=== PATIENT | female | born 1970 | race Two or more races ===

== ENCOUNTER 2016-10-12 16:25 | Inpatient (IN) | payer OTHER ==
[2016-10-12 16:30] VITALS: BMI 23.9
[2016-10-12 17:17] LABS: BASOPHIL 0.6 % (0-2.0); MCH 26.4 pg (25.7-33.7); MCHC 33.3 g/dl (32.0-36.0); MEAN CELL VOLUME 79.5 fl (80-96); MEAN PLT VOLUME 7.9 fl (7.5-11.1); NEUTROPHILS 68.3 % (42.8-82.8); PLATELET COUNT 291 K/MM3 (134-434); RDW 15.2 % (11.6-15.6); WHITE BLOOD COUNT 8.4 K/mm3 (4.0-10.0)
[2016-10-12 17:21] LABS: URINE APPEARANCE CLEAR; URINE BILIRUBIN NEGATIVE (NEGATIVE); URINE BLOOD 1+ (NEGATIVE); URINE COLOR YELLOW; URINE GLUCOSE (UA) NEGATIVE (NEGATIVE); URINE KETONE NEGATIVE (NEGATIVE); URINE LEUK ESTERASE NEGATIVE (NEGATIVE); URINE NITRITE NEGATIVE (NEGATIVE); URINE PROTEIN NEGATIVE (NEGATIVE); URINE UROBILINOGEN NEGATIVE E.U./dl (0.2-1.0)
[2016-10-12 17:22] LABS: URINE BACTERIA RARE /hpf (NONE SEEN); URINE MUCUS RARE; URINE RBC 2 /hpf (0-3); URINE WBC <1 /hpf (3-5)
--- NOTE | 2016-10-12 17:37 | PDOC ---
History of Present Illness - General History Source: Patient Exam Limitations: No Limitations - History of Present Illness Initial Comments: 10/12/16 17:48 The patient is a 45 year old female with history of gallstones and distant history of H. pylori who presents to the ED complaining of 1 month of intermittent epigastric discomfort, pressure like in nature, radiating to the back, not associated with eating, ranked 5/10 in intensity. She states she was seen at a clinic for her complaint approximately 3 weeks ago and was prescribed Gas-X with only mild relief. The patient denies any fever or chills. She denies any nausea, vomiting, or diarrhea. Last bowel movement was this morning. <Lorenza Watson - Last Filed: 10/12/16 18:00> <Willy Rodriguez - Last Filed: 10/12/16 22:08> <Frieda Montes De Oca - Last Filed: 10/12/16 23:02> - General Chief Complaint: Pain Stated Complaint: ABD PAIN Time Seen by Provider: 10/12/16 17:36 Past History <Lorenza Watson - Last Filed: 10/12/16 18:00> - Past Medical History Kidney Stones: Yes Other medical history: GALL BLADDER STONES. - Psycho/Social/Smoking Cessation Hx Anxiety: No Suicidal Ideation: No Smoking History: Never smoked Hx Alcohol Use: No Drug/Substance Use Hx: No Substance Use Type: None <Willy Rodriguez - Last Filed: 10/12/16 22:08> <Frieda Montes De Oca - Last Filed: 10/12/16 23:02> - Past Medical History Allergies/Adverse Reactions: Allergies Allergy/AdvReac Type Severity Reaction Status Date / Time amoxicillin Allergy Severe anaphylaxis Verified 10/12/16 16:26 azithromycin Allergy Severe anaphylaxis Verified 10/12/16 16:26 [From Zithromax Z-Triston] Home Medications: Ambulatory Orders NK [No Known Home Medication] 10/12/16 Review of Systems - Review of Systems Able to Perform ROS?: Yes Comments:: 10/12/16 17:57 CONSTITUTIONAL: No fever, no chills, no fatigue EYES: No visual changes ENT: No ear pain, no sore throat CARDIOVASCULAR: No chest pain, no palpitations RESPIRATORY: No cough, no SOB GI: +Epigastric discomfort. No no nausea, no vomiting, no constipation, no diarrhea GENITOURINARY: No dysuria, no frequency, no hematuria MUSCULOSKELETAL: No backpain, no joint pain, no myalgias SKIN: No rash NEURO: No headache <Lorenza Watson - Last Filed: 10/12/16 18:00> *Physical Exam - Vital Signs Last Vital Signs Temp Pulse Resp BP Pulse Ox 97.6 F 108 H 20 141/67 98 10/12/16 16:25 10/12/16 16:25 10/12/16 16:25 10/12/16 16:25 10/12/16 16:25 - Physical Exam Comments: 10/12/16 17:57 CONSTITUTIONAL: Well-appearing; well-nourished; in no apparent distress HEAD: Normocephalic; atraumatic EYES: PERRL; EOM intact; no scleral icterus ENMT: External appears normal; normal oropharynx; moist mucous membranes NECK: Supple; non-tender; no cervical lymphadenopathy CARD: Normal S1, S2; no murmurs, rubs, or gallops RESP: Normal chest excursion with respiration; breath sounds clear and equal bilaterally; no wheezes, rhonchi, or rales ABD: +Mild epigastric tenderness with no guarding or rebound; Soft; non-tender; no palpable organomegaly, no palpable hernias EXT: Normal ROM in all four extremities; non-tender to palpation; distal pulses intact SKIN: Warm, dry, no rash NEURO: No focal neurological deficiencies. <Lorenza Watson - Last Filed: 10/12/16 18:00> - Vital Signs Last Vital Signs Temp Pulse Resp BP Pulse Ox 97.6 F 108 H 20 141/67 98 10/12/16 16:25 10/12/16 16:25 10/12/16 16:25 10/12/16 16:25 10/12/16 16:25 <Willy Rodriguez - Last Filed: 10/12/16 22:08> - Vital Signs Last Vital Signs Temp Pulse Resp BP Pulse Ox 98.4 F 98 H 20 144/80 99 10/12/16 20:16 10/12/16 20:16 10/12/16 20:16 10/12/16 20:16 10/12/16 20:16 <Frieda Montes De Oca - Last Filed: 10/12/16 23:02> Heart Score/ECG Review - ECG Intrepretation Comment:: 10/12/16 23:00 ECG was read by Dr. Rodriguez at 22:55 Impression: Normal Sinus Rhythm Vent. Rate: 86 bpm GA Interval: 134 ms QTc: 445 ms <Frieda Montes De Oca - Last Filed: 10/12/16 23:02> ED Treatment Course - LABORATORY CBC & Chemistry Diagram: 10/12/16 17:10 10/12/16 17:10 - ADDITIONAL ORDERS Additional order review: Laboratory Results 10/12/16 17:10 Urine Color Yellow Urine Appearance Clear Urine pH 7.0 Urine Protein Negative Urine Glucose (UA) Negative Urine Ketones Negative Urine Blood 1+ H Urine Nitrite Negative Urine Bilirubin Negative Urine Urobilinogen Negative Ur Leukocyte Esterase Negative Urine RBC 2 Urine WBC <1 Ur Epithelial Cells Rare Urine Bacteria Rare Urine Mucus Rare Urine HCG, Qual Negative 10/12/16 17:10 RBC 4.63 MCV 79.5 L MCHC 33.3 RDW 15.2 MPV 7.9 Neutrophils % 68.3 Lymphocytes % 20.3 Monocytes % 7.8 Eosinophils % 3.0 Basophils % 0.6 <Lorenza Watson - Last Filed: 10/12/16 18:00> - LABORATORY CBC & Chemistry Diagram: 10/12/16 17:10 10/12/16 17:10 - ADDITIONAL ORDERS Additional order review: Laboratory Results 10/12/16 17:10 Urine Color Yellow Urine Appearance Clear Urine pH 7.0 Urine Protein Negative Urine Glucose (UA) Negative Urine Ketones Negative Urine Blood 1+ H Urine Nitrite Negative Urine Bilirubin Negative Urine Urobilinogen Negative Ur Leukocyte Esterase Negative Urine RBC 2 Urine WBC <1 Ur Epithelial Cells Rare Urine Bacteria Rare Urine Mucus Rare Urine HCG, Qual Negative 10/12/16 17:10 RBC 4.63 MCV 79.5 L MCHC 33.3 RDW 15.2 MPV 7.9 Neutrophils % 68.3 Lymphocytes % 20.3 Monocytes % 7.8 Eosinophils % 3.0 Basophils % 0.6 <Willy Rodriguez - Last Filed: 10/12/16 22:08> - LABORATORY CBC & Chemistry Diagram: 10/12/16 17:10 10/12/16 17:10 - ADDITIONAL ORDERS Additional order review: Laboratory Results 10/12/16 10/12/16 17:10 17:10 Sodium 141 Potassium 3.8 Chloride 104 Carbon Dioxide 24 Anion Gap 13 BUN 6 L Creatinine 0.8 Creat Clearance w eGFR > 60 Random Glucose 116 H Calcium 9.3 Total Bilirubin 1.0 AST 770 H ALT 656 H Alkaline Phosphatase 168 H Total Protein 8.0 Albumin 4.1 Lipase 282 Urine Color Yellow Urine Appearance Clear Urine pH 7.0 Ur Specific [place] 1.015 Urine Protein Negative Urine Glucose (UA) Negative Urine Ketones Negative Urine Blood 1+ H Urine Nitrite Negative Urine Bilirubin Negative Urine Urobilinogen Negative Ur Leukocyte Esterase Negative Urine RBC 2 Urine WBC <1 Ur Epithelial Cells Rare Urine Bacteria Rare Urine Mucus Rare Urine HCG, Qual Negative 10/12/16 17:10 RBC 4.63 MCV 79.5 L MCHC 33.3 RDW 15.2 MPV 7.9 Neutrophils % 68.3 Lymphocytes % 20.3 Monocytes % 7.8 Eosinophils % 3.0 Basophils % 0.6 - Medications Given in the ED: ED Medications Discontinued Medications Generic Name Dose Route Start Last Admin Trade Name Gerryq PRN Reason Stop Dose Admin Al Hydroxide/Mg Hydroxide 30 ml 10/12/16 17:48 10/12/16 17:58 Mylanta Oral Suspension - PO 10/12/16 17:49 30 ml ONCE ONE Administration Ranitidine HCl 150 mg 10/12/16 17:48 10/12/16 17:58 Zantac - PO 10/12/16 17:49 150 mg ONCE ONE Administration <Frieda Montes De Oca - Last Filed: 10/12/16 23:02> Medical Decision Making - Medical Decision Making 10/12/16 22:11 Patient is a well-appearing 45-year-old female with history of cholelithiasis, treated H. pylori who presents with worsening epigastric and right upper quadrant pain for a period of 3-4 weeks. In the ER, patient is awake and alert, afebrile, hemodynamically stable. Physical exam reveals persistent epigastric tenderness to deep palpation without a positive Blanc's. There is no CVA tenderness bilaterally. CBC is within normal limit. CMP reveals significant elevation of AST and ALTs in mild elevation of alkaline phosphatase with a normal bilirubin. Right upper quadrant ultrasound reveals sludge and small gallstones within the gallbladder wall. there is no gallbladder wall thickening and there is no evidence of pericholecystic fluid. Evidence of fatty infiltration is noted. I discussed the case with Dr. Suzanne Hooper of GI. He recommends placing patient in observation for serial LFT evaluation and a CT with IV contrast to evaluate for vascular pathology. Hepatitis panel is also pending. we'll place and observation. <Willy Rodriguez - Last Filed: 10/12/16 22:08> - Medical Decision Making 10/12/16 21:02 Dr. Quintanilla was paged at 21:00 requesting a call back for doctor to doctor consult via phone answering service. I have been informed Dr. Rivas will be returning the call. Dr. Rivas was paged a second time at 21:17 requesting a call back for doctor to doctor consult 10/12/16 22:01 I have discussed the patient's case with the hospitalist, Dr. Bryant, who accepts the patient's admission under observation. <Frieda Montes De Oca - Last Filed: 10/12/16 23:02> *DC/Admit/Observation/Transfer - Attestations Scribe Attestion: 10/12/16 17:58 Documentation prepared by Lorenza Watson, acting as medical delivery driver for Willy Rodriguez MD. <Lorenza Watson - Last Filed: 10/12/16 18:00> - Discharge Dispostion Admit: Yes - Attestations Physician Attestion: 10/12/16 22:10 The documentation was prepared by the scribe under my direct supervision. I have reviewed the documentation which correctly represents the findings, medical decision-making and critical action taken by me. <Willy Rodriguez - Last Filed: 10/12/16 22:08> <Frieda Montes De Oca - Last Filed: 10/12/16 23:02> Diagnosis at time of Disposition: Epigastric abdominal pain, Elevated LFTs
[2016-10-12 17:39] LABS: ALBUMIN 4.1 g/dl (3.4-5.0); ANION GAP 13 (8-16); CALCIUM 9.3 mg/dL (8.5-10.1); CO2 24 mmol/L (21-32); COCKROFT - GAULT 84.1755; CREATININE 0.8 mg/dL (0.55-1.02); GLUCOSE,RANDOM 116 mg/dL (74-106)
[2016-10-12 17:42] LABS: ALK PHOS 168 U/L (45-117)
[2016-10-12 17:48] LABS: SGOT/AST 770 U/L (15-37); SGPT/ALT 656 U/L (12-78)
[2016-10-12] MEDS ORDERED: RANITIDINE HCL 150 MG TABLET (FP) PO ONE (17:48)
[2016-10-12] MEDS ORDERED: MAG HYDROX/AL HYDROX/SIMETH 30 ML UNIT-DOSE CUP PO ONE (17:48)
[2016-10-12] MEDS ORDERED: RANITIDINE HCL 150 MG TABLET (FP) ONE (17:54)
[2016-10-12] MEDS ORDERED: MAG HYDROX/AL HYDROX/SIMETH 30 ML UNIT-DOSE CUP ONE (17:55)
--- NOTE | 2016-10-12 22:04 | PN ---
<MannyJustin - Last Filed: 10/12/16 22:03> Teaching Attending Note Name of Resident: Rose Sanchez ATTENDING PHYSICIAN STATEMENT I saw and evaluated the patient. I reviewed the resident's note and discussed the case with the resident. I agree with the resident's findings and plan as documented. SUBJECTIVE: OBJECTIVE: ASSESSMENT AND PLAN: <John Lundyhel - Last Filed: 10/13/16 00:03> Teaching Attending Note ATTENDING PHYSICIAN STATEMENT I saw and evaluated the patient. I reviewed the resident's note and discussed the case with the resident. I agree with the resident's findings and plan as documented. Imaging date and chart reviewed. SUBJECTIVE: The patient is a 45 yo F with a PMHx of gallstones, kidney stones, remote hx of H.pylori who presents with complaints of gassy feeling in her epigastric area for the past one month. Patient states it begins 1 week before her menstruation however remained constant recently. Patient describes the pain is intermittent, with some relief to Gasax but not to omeprazole. Patient denies any nausea, vomiting or radiation. Patient reports her pain occurred spontaneously. Denies any trauma to the area. Denies any dietary changes. Remote history of H. pylori which was treated but not confirmed it was treated successfully. Patient has been taking Tylenol for relief for the past month however is unsure of exact dosages. Denied taking herbal supplements. Denied any known hx of liver disease. As per chart, ED physician discussed case with Dr. Olivares who recommended CT of abdomen with contrast and admission to hospital. OBJECTIVE: Last Vital Signs Temp Pulse Resp BP Pulse Ox 98.4 F 98 H 20 144/80 99 10/12/16 20:16 10/12/16 20:16 10/12/16 20:16 10/12/16 20:16 10/12/16 20:16 GENERAL: Awake, alert, and fully oriented, in no acute distress. HEENT: Atraumatic. Moist mucosa. Normocephalic. No sinus tenderness. No LAD. NECK: No JVD. No thyroid masses. Supple. LUNGS: Clear to auscultation bilaterally. No wheezing, rhonchi or rales. HEART: Regular rate and rhythm, normal S1 and S2, no murmurs, rubs or gallops, peripheral pulses normal and equal bilaterally. ABDOMEN: +Mild RUQ tenderness and epigastric tenderness to palpation. Normoactive bowel sounds. No guarding, no rebound. No Masses. Negative Blanc sign. MUSCULOSKELETAL: No joint tenderness or erythema. No muscle tenderness. Normal muscle bulk and tone. EXTREMITIES: Normal inspection, No edema. No clubbing or cyanosis. Moves all extremities. NEUROLOGICAL: Normal speech, no focal sensorimotor deficits. SKIN: Warm, dry, normal turgor, no rashes or lesions noted. Laboratory Results - last 24 hr 10/12/16 10/12/16 10/12/16 17:10 17:10 17:10 WBC 8.4 RBC 4.63 Hgb 12.2 Hct 36.8 MCV 79.5 L MCHC 33.3 RDW 15.2 Plt Count 291 MPV 7.9 Neutrophils % 68.3 Lymphocytes % 20.3 Monocytes % 7.8 Eosinophils % 3.0 Basophils % 0.6 Sodium 141 Potassium 3.8 Chloride 104 Carbon Dioxide 24 Anion Gap 13 BUN 6 L Creatinine 0.8 Creat Clearance w eGFR > 60 Random Glucose 116 H Calcium 9.3 Total Bilirubin 1.0 AST 770 H ALT 656 H Alkaline Phosphatase 168 H Total Protein 8.0 Albumin 4.1 Lipase 282 Urine Color Yellow Urine Appearance Clear Urine pH 7.0 Ur Specific [place] 1.015 Urine Protein Negative Urine Glucose (UA) Negative Urine Ketones Negative Urine Blood 1+ H Urine Nitrite Negative Urine Bilirubin Negative Urine Urobilinogen Negative Ur Leukocyte Esterase Negative Urine RBC 2 Urine WBC <1 Ur Epithelial Cells Rare Urine Bacteria Rare Urine Mucus Rare Urine HCG, Qual Negative Imaging: Abdomen US Impression: There are small shadowing stones and sludge in the gallbladder. The gallbladder wall is normal in thickness measuring 2 mm. There is no pericholecystic fluid. Presence or absence of a sonographic Blanc's sign was not reported The common bile duct is within normal limits measuring 5.5 There are heterogeneous areas of increased echotexture in the liver possibly secondary to steatosis. The liver is normal in size and contour. No intrahepatic biliary dilatation. No hepatic masses. Patent portal vein The right kidney, pancreas and visualized portions of the abdominal aorta and IVC are unremarkable. ASSESSMENT AND PLAN: 1.Transaminitis which is more hepatotoxic and less cholecystic in nature. No prior LFTs available for comparison. Differential diagnosis includes medication induced liver injury (Tylenol), PEREZ and autoimmune Hepatitis. As patient denies alcohol use and was found to have fatty liver on Abdominal Sonogram should also r.o less likely causes such as viral hepatitis and portal vein thrombosis. Patient does not appear to have cholecystitis. Plan: Tylenol level Hepatitis B, C serology Hepatitis A IgM GI consult Abdomen CT contrast + Avoid hepatotoxic medications Antimitochondrial antibody AA Regular Diet 2. DVT PPx Plan: SCDs Admitted for observation on 10/12/16 Documentation prepared by Charo Lundy, acting as medical specialist for Justin Bryant MD
[2016-10-12] MEDS: DEXTROSE 5%-0.45% SALINE 1,000 ML IV SCH (22:58)
[2016-10-13] MEDS: SODIUM CHLORIDE 1,000 ML IV SCH ×4 (00:03→23:27)
--- NOTE | 2016-10-13 00:20 | HP ---
Addendum entered and electronically signed by Rose Sanchez RES 10/13/16 01: 17: plan: check Antimitochondrial antibody AA Original Note: CHIEF COMPLAINT: "i get gassy stomach pains" PCP: none, visits free clinic due to lack of insurance HISTORY OF PRESENT ILLNESS: This is a healthy 45 yo F with PMH of H pylori, treated 10 yrs ago, R renal calculus that passed spontaneously 2 yrs ago and asymptomatic gall stones, who presents due to diffuse "gassy"abdominal pain associated with her menstrual cycle for the past 2 mo and pressure like epigastric pain that comes and goes for the past week, alleviated by burping and Gas-x tablets. There are no aggravating factors including food or lying flat. She has been taking 2 extra strength tylenols TID for about 6 days at a time, last one being today. She denies n/v, diarrhea, constipation, f/c, flank pain, dysuria, melena, hematochezia, bry colored stools. She denies taking herbal supplements. She denies alcohol or drug use, history of hepatitis, prior blood transfusions or risky sexual behavior. She eats healthy home cooked meals and denies weight gain , Had recent normal blood work. She denies chest pain, palpitations, LE edema, anorexia, dizziness. 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 Smoking: denies Alcohol:denies Drugs: denies Family History: no HX of hepatic pathology, autoimmune disease, GI disorders Allergies amoxicillin Allergy (Severe, Verified 10/12/16 16:26) anaphylaxis azithromycin [From Zithromax Z-Triston] Allergy (Severe, Verified 10/12/16 16:26) anaphylaxis HOME MEDICATIONS: Home Medications Medication Instructions Recorded NK [No Known Home Medication] 10/12/16 REVIEW OF SYSTEMS CONSTITUTIONAL: Absent: fever, chills, diaphoresis, generalized weakness, malaise, loss of appetite, weight change HEENT: Absent: rhinorrhea, nasal congestion, throat pain Absent: chest pain, syncope, palpitations, irregular heart rate, lightheadedness , peripheral edema RESPIRATORY: Absent: cough, shortness of breath, dyspnea with exertion, orthopnea GASTROINTESTINAL: Absent: abdominal distension, nausea, vomiting, diarrhea, constipation, melena, hematochezia GENITOURINARY: Absent: dysuria, flank pain MUSCULOSKELETAL: Absent: myalgia, arthralgia SKIN: Absent: rash, itching, pallor HEMATOLOGIC/IMMUNOLOGIC: Absent: easy bleeding, easy bruising ENDOCRINE: Absent: unexplained weight gain, unexplained weight loss NEUROLOGIC: Absent: headache, focal weakness or paresthesias PSYCHIATRIC: Absent: anxiety, depression Laboratory Tests 10/12/16 10/12/16 10/12/16 17:10 17:10 17:10 WBC 8.4 Hgb 12.2 Hct 36.8 Plt Count 291 Sodium 141 Potassium 3.8 Chloride 104 Carbon Dioxide 24 Anion Gap 13 BUN 6 L Creatinine 0.8 Creat Clearance w eGFR > 60 Random Glucose 116 H Calcium 9.3 Total Bilirubin 1.0 AST 770 H ALT 656 H Alkaline Phosphatase 168 H Total Protein 8.0 Albumin 4.1 Lipase 282 Urine Color Yellow Urine Appearance Clear Urine pH 7.0 Ur Specific [place] 1.015 Urine Protein Negative Urine Glucose (UA) Negative Urine Ketones Negative Urine Blood 1+ H Urine Nitrite Negative Urine Bilirubin Negative Urine Urobilinogen Negative Ur Leukocyte Esterase Negative Urine RBC 2 Urine WBC <1 Ur Epithelial Cells Rare Urine Bacteria Rare Urine Mucus Rare Urine HCG, Qual Negative Hepatitis C Antibody 10/12/16 18:52 WBC Hgb Hct Plt Count Sodium Potassium Chloride Carbon Dioxide Anion Gap BUN Creatinine Creat Clearance w eGFR Random Glucose Calcium Total Bilirubin AST ALT Alkaline Phosphatase Total Protein Albumin Lipase Urine Color Urine Appearance Urine pH Ur Specific [place] Urine Protein Urine Glucose (UA) Urine Ketones Urine Blood Urine Nitrite Urine Bilirubin Urine Urobilinogen Ur Leukocyte Esterase Urine RBC Urine WBC Ur Epithelial Cells Urine Bacteria Urine Mucus Urine HCG, Qual Hepatitis C Antibody Pending PHYSICAL EXAMINATION GENERAL: Awake, alert, and fully oriented, in no acute distress. HEAD: Normal with no signs of trauma. EYES: Pupils equal, round and reactive to light, extraocular movements intact, sclera anicteric, conjunctiva clear. No lid lag. EARS, NOSE, THROAT: Moist mucous membranes. NECK: supple without JVD LUNGS: Breath sounds equal, clear to auscultation bilaterally. HEART: Regular rate and rhythm, normal S1 and S2 without murmur, rub or gallop. ABDOMEN: Soft, mildly tender in RUQ and epigastric region, not distended, normoactive bowel sounds, no guarding, no rebound, no masses. No hepatomegaly or splenomegaly. - murphys MUSCULOSKELETAL: No CVA tenderness. UPPER EXTREMITIES: 2+ pulses, warm, well-perfused. No cyanosis. No clubbing. No peripheral edema. LOWER EXTREMITIES: 2+ pulses, warm, well-perfused. No calf tenderness. No peripheral edema. NEUROLOGICAL: Cranial nerves II-XII grossly intact. Normal speech. PSYCHIATRIC: Cooperative. Good eye contact. Appropriate mood and affect. SKIN: Warm, dry ASSESSMENT/PLAN: This is a healthy 45 yo F with PMH of H pylori, treated 10 yrs ago, R renal calculus that passed spontaneously 2 yrs ago and asymptomatic gall stones, who presents due to diffuse "gassy"abdominal pain associated with her menstrual cycle for the past 2 mo and pressure like epigastric pain that comes and goes for the past week. reports excessive use of extra strength tylenol New Transaminitis -[id number], ALT 656 -fatty liver on US abd -denies EtOH use, no Hep C risk factors -may be due to excessive Tylenol use, last used today; check tylenol level -f/u liver enzymes -CT abd with contrast -IVF NS @ 125 -hepatitis panel -Gi consulted Epigastric Abdominal pain -releived by gas x; likely flatulence -very low suspicion for ACS -f/u ekg, trop, cxr -zantac, mylanta prn -recommend checking h pylori outpatient to document clearance FEN NS@125 lytes stable regular diet SCD Dispo: obs in [facility] [place] Visit type - Emergency Visit Emergency Visit: Yes ED Registration Date: 10/12/16 Care time: The patient presented to the Emergency Department on the above date and was hospitalized for further evaluation of their emergent condition. - New Patient This patient is new to me today: Yes Date on this admission: 10/13/16 - Critical Care Critical Care patient: No
[2016-10-13] MEDS: MAG HYDROX/AL HYDROX/SIMETH 30 ML UNIT-DOSE CUP PO PRN ×2 (06:54→22:21)
[2016-10-13 09:13] LABS: ALBUMIN 3.6 g/dl (3.4-5.0); ALK PHOS 137 U/L (45-117); ANION GAP 10 (8-16); BILIRUBIN,DIRECT 0.3 mg/dL (0.0-0.2); BILIRUBIN,TOTAL 1.3 mg/dL (0.2-1.0); CALCIUM 8.1 mg/dL (8.5-10.1); CO2 25 mmol/L (21-32); CREATININE 0.6 mg/dL (0.55-1.02); GLUCOSE,RANDOM 68 mg/dL (74-106); MAGNESIUM 2.1 mg/dL (1.8-2.4); PHOSPHOROUS 3.3 mg/dL (2.5-4.9); SGOT/AST 329 U/L (15-37); TOT PROT 6.5 g/dl (6.4-8.2)
[2016-10-13 09:14] LABS: SGPT/ALT 492 U/L (12-78)
--- NOTE | 2016-10-13 09:15 | CON.GI ---
Consult Consult Specialty:: GI Referred by:: Hospitalist Service Reason for Consultation:: Abdominal pain / Abnormal LFTs - History of Present Illness Chief Complaint: For 2 months I have been having pain and gas on an off History of Present Illness: 45F admitted through [facility] ER for evaluation of intermittent dyspeptic symptoms for about 2 months. She says that she has been experiencing episodes of "Gas", abdominal bloating / upper abdominal pressure and abdominal pain intermittently for 2 months. She said that the worst episodes were in this past mid august, when the symptoms became more frequent and intense. She had epigastric pain at that time radiating to her RUQ and the mid back. She attributed to getting the symptoms worse 2 weeks prior to her period but also says that she has noticed this oiccurring after meals as well. She denies nausea, vomiting, fevers, chills and unintentional weight loss. She alludes to having similar symptoms about 2 years ago and believes that she was told of kidney stones and also believes that she was treated for h. pylori. She does not have regular medical care stating because she has no insurance. Liver chemistries were elevated in the ER including transaminases and ALP. She has had no recent blood work for comparison. She denies alcohol use, sexual promiscuity, known h/o viral hepatitides / recent travel / blood transfusions or family history of liver disease. She was taking tylenol 500mg two pills every 4 hours (3g) over the last couple of weeks due to headaches and abdominal pain. She denies any other recent medication use aside from omeprazole, zantac and Gas-X. She feels as though Gas-X may have helped a bit. She currently denies any abdominal pain but tells me that her "stomach went crazy after breakfast". CT/US were not read as of yet however the ER attending mentioned fatty liver and cholelithiasis from a preliminary reading. - History Source History Provided By: Patient Limitations to Obtaining History: No Limitations - Past Medical History Gastrointestinal: Yes: Gastritis (h. 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year[place] 1988 History of Recent Travel: No Home Medications - Allergies Allergies/Adverse Reactions: Allergies Allergy/AdvReac Type Severity Reaction Status Date / Time amoxicillin Allergy Severe anaphylaxis Verified 10/12/16 16:26 azithromycin Allergy Severe anaphylaxis Verified 10/12/16 16:26 [From Zithromax Z-Triston] - Home Medications Home Medications: Ambulatory Orders B Cmplx 4/Vit D3/C/FA/Zinc Ox [Vital-D Rx Tablet] PO DAILY 10/13/16 Omeprazole 20 mg PO DAILY 10/13/16 Vit B12/Pyridoxine/Thiamine PO DAILY 10/13/16 Family Disease History - Family Disease History Family Disease History: Other: Father (Alive: Defibrilator w/ ? alcoholic cardiomyopathy), Mother (Alive: healthy), Brother (Alive: asthma), Sister (Alive : Asthma), Son (Alive: Healthy), Daughter (Alive: healthy) Other Family History: No family h/o colorectal cancer, liver disease, autoimmune disease or other GI malignancy Review of Systems - Review of Systems Constitutional: denies: Chills, Fever Cardiovascular: denies: Chest Pain Respiratory: denies: SOB Gastrointestinal: reports: Abdominal Pain, Bloating. denies: Constipation, Diarrhea, Nausea, Rectal Bleeding, Vomiting Genitourinary: denies: Dysuria Physical Exam-GI Vital Signs: Vital Signs Temperature 98.1 F 10/13/16 07:46 Pulse Rate 84 10/13/16 07:46 Respiratory Rate 18 10/13/16 07:46 Blood Pressure 103/58 10/13/16 07:46 O2 Sat by Pulse Oximetry (%) 100 10/13/16 02:20 Constitutional: Yes: Calm Eyes: No: Sclera Icterus Neck: Yes: Supple Cardiovascular: Yes: Regular Rate and Rhythm Respiratory: Yes: CTA Bilaterally Gastrointestinal Inspection: No: Distention, Hernia, Scars ...Auscultate: Yes: Normoactive Bowel Sounds ...Palpate: Yes: Tenderness (mild TTP epigastrium). No: Hepatomegaly, Splenomegaly ...Percussion: No: Tympanitic Edema: No Neurological: Yes: Alert, Oriented Imaging - Results Cat Scan: Pending, Image Reviewed (not read yet. No nighthawk read in physical chart. + gallstone in GB and ? thickening of GB wall) Problem List - Problems (1) Epigastric abdominal pain Assessment/Plan: Dyspepsia: Given findings of cholelithiasis, upper abdominal complaints that seem to be food related, biliary colic or possible intermittent passage of smaller gallstones would need to be considered in differential She was taking APAP howeever due to abdominal pain and headaches she was experiencing Advise: Clear liquids Surgical evaluation Await US/CT scan readings Awaiting repeat liver chemistries Acute hepatitis serologies are pending MRCP to assess biliary tract Code(s): R10.13 - EPIGASTRIC PAIN
[2016-10-13 10:16] LABS: BASOPHIL 0.6 % (0-2.0); EOSINOPHIL 3.9 % (0-4.5); MCH 26.5 pg (25.7-33.7); MCHC 33.4 g/dl (32.0-36.0); MEAN CELL VOLUME 79.3 fl (80-96); MEAN PLT VOLUME 7.6 fl (7.5-11.1); NEUTROPHILS 70.7 % (42.8-82.8); PLATELET COUNT 242 K/MM3 (134-434); RDW 15.2 % (11.6-15.6); WHITE BLOOD COUNT 7.3 K/mm3 (4.0-10.0)
[2016-10-13] MEDS ORDERED: LEVOFLOXACIN 500 MG IVPB 100 ML IVPB SCH (15:45)
--- NOTE | 2016-10-13 15:49 | PN ---
Physical Exam: SUBJECTIVE: Patient seen and examined. She has no complaints. She has not had abdominal pain today. OBJECTIVE: Vital Signs Period Temp Pulse Resp BP Sys/Hurst Pulse Ox Last 24 Hr 98.1 F-98.2 F 84-86 18-20 103-129/58-84 99-100 GENERAL: The patient is awake, alert, and fully oriented, in no acute distress. LUNGS: Breath sounds equal, clear to auscultation bilaterally, no wheezes, no crackles, no accessory muscle use. HEART: Regular rate and rhythm, S1, S2 without murmur, rub or gallop. ABDOMEN: Soft, nontender, nondistended, normoactive bowel sounds, no guarding, no rebound, no hepatosplenomegaly, no masses. EXTREMITIES: 2+ pulses, warm, well-perfused, no edema. Laboratory Results - last 24 hr 10/13/16 10/13/16 05:40 10:00 WBC 7.3 RBC 4.37 Hgb 11.6 Hct 34.7 MCV 79.3 L MCHC 33.4 RDW 15.2 Plt Count 242 MPV 7.6 Neutrophils % 70.7 Lymphocytes % 18.8 Monocytes % 6.0 Eosinophils % 3.9 Basophils % 0.6 Sodium 142 Potassium 3.9 Chloride 107 Carbon Dioxide 25 Anion Gap 10 BUN 4 L D Creatinine 0.6 D Creat Clearance w eGFR > 60 Random Glucose 68 L D Calcium 8.1 L Phosphorus 3.3 Magnesium 2.1 Total Bilirubin 1.3 H D Direct Bilirubin 0.3 H AST 329 H D ALT 492 H D Alkaline Phosphatase 137 H Total Protein 6.5 Albumin 3.6 Active Medications Generic Name Dose Route Start Last Admin Trade Name Gerryq PRN Reason Stop Dose Admin Al Hydroxide/Mg Hydroxide 30 ml 10/13/16 00:21 10/13/16 06:54 Mylanta Oral Suspension - PO 30 ml Q6H PRN Administration DYSPEPSIA Dextrose/Sodium Chloride 1,000 mls @ 125 mls/hr 10/12/16 22:15 10/12/16 22:58 D5-1/2ns - IV 125 mls/hr ASDIR JOSE ANGEL Administration Sodium Chloride 1,000 mls @ 125 mls/hr 10/12/16 23:45 10/13/16 14:19 Normal Saline - IV 125 mls/hr ASDIR JOSE ANGEL Administration ASSESSMENT/PLAN: This is a 45-year-old woman with a history of H. pylori, renal calculus, gallstones who presented to the ER for intermittent upper abdominal pain and bloating associated with meals x 2 months. 1. Epigastric abdominal pain with hepatic transaminitis, elevated alk phos - AST/ALT/alk phos improving - CT shows multiple gallstones without wall thickening; pericholecystic fluid present; 4 mm non-obstructing right renal stone - MRCP pending - HIDA scan to evaluate for cholecystitis - Hepatitis panel pending - Continue IV fluid, clear liquid diet - Start Levaquin, Flagyl for possible acute cholecystitis - Surgery consult Visit type - Emergency Visit Emergency Visit: Yes ED Registration Date: 10/12/16 Care time: The patient presented to the Emergency Department on the above date and was hospitalized for further evaluation of their emergent condition. - New Patient This patient is new to me today: Yes Date on this admission: 10/13/16 - Critical Care Critical Care patient: No - Discharge Referral Referred to [facility] Med P.C.: No
[2016-10-13] MEDS ORDERED: MEROPENEM 1 GM in DEXTROSE 5%-WATER - 100 ML IVPB ONE (17:59)
[2016-10-13] MEDS ORDERED: METRONIDAZOLE 500 MG PREMIXED 100 ML IVPB SCH (18:00)
[2016-10-14] MEDS: LORATADINE 10 MG TABLET PO SCH ×2 (01:53→09:20)
[2016-10-14] MEDS: MEROPENEM 1 GM in DEXTROSE 5%-WATER - 100 ML IVPB SCH ×2 (02:47→09:29)
[2016-10-14] MEDS: DEXTROSE 5%-0.45% SALINE 1,000 ML IV SCH (02:49)
[2016-10-14] MEDS ORDERED: diphenhydrAMINE HCL 25 MG CAPSULE (FP) PO ONE (04:14)
[2016-10-14 07:10] LABS: BASOPHIL 0.6 % (0-2.0); EOSINOPHIL 5.1 % (0-4.5); MCH 26.4 pg (25.7-33.7); MCHC 33.1 g/dl (32.0-36.0); MEAN CELL VOLUME 79.7 fl (80-96); MEAN PLT VOLUME 8.3 fl (7.5-11.1); NEUTROPHILS 61.8 % (42.8-82.8); PLATELET COUNT 233 K/MM3 (134-434); RDW 15.4 % (11.6-15.6); WHITE BLOOD COUNT 7.3 K/mm3 (4.0-10.0)
[2016-10-14 07:36] LABS: INR 1.09 (0.82-1.09)
[2016-10-14 07:42] LABS: ALBUMIN 3.4 g/dl (3.4-5.0); ANION GAP 11 (8-16); BILIRUBIN,TOTAL 1.1 mg/dL (0.2-1.0); CO2 24 mmol/L (21-32); COCKROFT - GAULT 134.6825; CREATININE 0.5 mg/dL (0.55-1.02); GLUCOSE,RANDOM 78 mg/dL (74-106); SGOT/AST 110 U/L (15-37); SGPT/ALT 320 U/L (12-78)
[2016-10-14 07:43] LABS: ALK PHOS 118 U/L (45-117); TOT PROT 6.4 g/dl (6.4-8.2)
[2016-10-14] MEDS ORDERED: PT OWN MED DRAWER 7, Y5N ONE (09:19)
[2016-10-14] MEDS ORDERED: LORATADINE 10 MG TABLET PO SCH (10:00)
--- NOTE | 2016-10-14 10:41 | EKG ---
Test Reason : Blood Pressure : / mmHG Vent. Rate : 086 BPM Atrial Rate : 086 BPM P-R Int : 134 ms QRS Dur : 070 ms QT Int : 372 ms P-R-T Axes : 044 037 056 degrees QTc Int : 445 ms NORMAL SINUS RHYTHM NORMAL ECG NO PREVIOUS ECGS AVAILABLE Confirmed by AUGIE WINSTON MD ([id number]) on 10/14/2016 10:41:25 AM Referred By: Confirmed By:AUGIE WINSTON MD
--- NOTE | 2016-10-14 11:23 | MSN ---
Progress Note (SOAP) - Subjective Chief Complaint: Gassy stomach pains History of Present Illness: 45yo F with past medical hx H Pylori treatment 10 years ago, R renal calculi, asymptomatic gallstones. She presents due to diffuse gassy abdominal pain and distention originating in periumbilical area, which shifted to RUQ. Patient was examined at bedside. States she had MRCP done yesterday (pending an official report), and is NPO for HIDA scan with Dr. Rivas today. Denies light headedness, dizziness, chest pain, SOB, N/V, diarrhea/constipation, abdominal pain, urinary changes. - Current Medications Current Medications: Active Medications Al Hydroxide/Mg Hydroxide (Mylanta Oral Suspension -) 30 ml PO Q6H PRN PRN Reason: DYSPEPSIA Last Admin: 10/13/16 22:21 Dose: 30 ml Dextrose/Sodium Chloride (D5-1/2ns -) 1,000 mls @ 125 mls/hr IV ASDIR JOSE ANGEL Last Admin: 10/14/16 02:49 Dose: Not Given Sodium Chloride (Normal Saline -) 1,000 mls @ 125 mls/hr IV ASDIR JOSE ANGEL Last Admin: 10/13/16 23:27 Dose: 125 mls/hr Meropenem 1 gm/ Dextrose 100 mls @ 100 mls/hr IVPB Q8H-IV JOSE ANGEL PRN Reason: Protocol Last Admin: 10/14/16 09:29 Dose: 100 mls/hr Loratadine (Claritin -) 10 mg PO DAILY JOSE ANGEL Last Admin: 10/14/16 09:20 Dose: Not Given - Objective Vital Signs: Vital Signs Temperature 98.3 F 10/14/16 06:00 Pulse Rate 77 10/14/16 06:00 Respiratory Rate 16 10/14/16 06:37 Blood Pressure 109/67 10/14/16 06:00 O2 Sat by Pulse Oximetry (%) 98 10/14/16 06:37 Constitutional: Yes: Well Nourished, No Distress, Calm Eyes: Yes: Conjunctiva Clear Cardiovascular: Yes: WNL, Regular Rate and Rhythm. No: Murmur, Rub, S3, S4 Respiratory: Yes: WNL, Regular, CTA Bilaterally. No: Cough, Rales, Rhonchi, SOB , Wheezes Gastrointestinal: Yes: Normal Bowel Sounds, Soft, Distention, Tenderness (RUQ) Genitourinary: No: CVA Tenderness - Left, CVA Tenderness - Right Psychiatric: Yes: WNL, Alert, Oriented Labs Lab Results: CBC, BMP 10/14/16 05:32 10/14/16 05:32 Laboratory Results - last 24 hr 10/14/16 10/14/16 10/14/16 05:32 05:32 05:32 WBC 7.3 RBC 4.15 Hgb 11.0 Hct 33.1 MCV 79.7 L MCHC 33.1 RDW 15.4 Plt Count 233 MPV 8.3 Neutrophils % 61.8 Lymphocytes % 26.5 D Monocytes % 6.0 Eosinophils % 5.1 H Basophils % 0.6 INR 1.09 Sodium 142 Potassium 3.5 Chloride 107 Carbon Dioxide 24 Anion Gap 11 BUN 3 L D Creatinine 0.5 L Creat Clearance w eGFR > 60 Random Glucose 78 Calcium 8.0 L Total Bilirubin 1.1 H AST 110 H D ALT 320 H D Alkaline Phosphatase 118 H Total Protein 6.4 Albumin 3.4 Last Vital Signs Temp Pulse Resp BP Pulse Ox 98.3 F 77 16 109/67 98 10/14/16 06:00 10/14/16 06:00 10/14/16 06:37 10/14/16 06:00 10/14/16 06:37 Imaging - Results Chest X-ray: Report Reviewed (no acute pathology or change from last CXR) Cat Scan: Report Reviewed (abdomen/pelvis: multiple small gallstones without gallbladder wall thickening. Pericholecystic free fluid noted. 4mm R renal nonsobstructing stone noted.) Ultrasound: Report Reviewed (tiny gallstones and sludge noted in gallbladder, no wall thickening appreciated.), Image Reviewed MRI: Pending (MRCP) Assessment/Plan 45yo F with past medical hx H Pylori treatment 10 years ago, R renal calculi, asymptomatic gallstones. She presents due to diffuse gassy abdominal pain in typical acute cholecystitis pattern and distention. Epigastric abdominal pain with hepatic transaminitis, elevated alk phos - AST/ALT/alk phos/hyperbilirubinemia improving - CT shows multiple gallstones without wall thickening, and pericholecystic fluid present - MRCP performed 10/13, pending read by Dr Rob zepeda to evaluate for cholecystitis today. Pt is NPO since midnight. - Hepatitis panel pending - Continue IV fluid. Clear liquid diet to be resumed after HIDA scan. - On meropenem for possible acute cholecystitis. On day 2 of antibiotics - Surgery consult Right renal calculi - CT shows 4 mm non-obstructing right renal stone - advised pt to hydrate adequately, and f/u outpatient - will monitor for CVA tenderness or urinary changes
--- NOTE | 2016-10-14 12:17 | PN ---
Progress Note (short form) - Note Progress Note: GI NOte: MRCP reviewed with Dr Goodman. There are no residual CBD stones but do suspect stone passage. Can proceed with cholecystectomy before another stone passes. Patient had left her room for HIda scan when I came to see her.
--- NOTE | 2016-10-14 14:44 | PN ---
Teaching Attending Note Name of Resident: Viktoriya Hills ATTENDING PHYSICIAN STATEMENT I saw and evaluated the patient. I reviewed the resident's note and discussed the case with the resident. I agree with the resident's findings and plan as documented. SUBJECTIVE: No abdominal pain, nausea, vomiting. OBJECTIVE: Vital Signs Period Temp Pulse Resp BP Sys/Hurst Pulse Ox Last 24 Hr 98.2 F-98.3 F 76-91 16-20 109-122/67-68 96-98 GENERAL: The patient is awake, alert, and fully oriented, in no acute distress. LUNGS: Breath sounds equal, clear to auscultation bilaterally, no wheezes, no crackles, no accessory muscle use. HEART: Regular rate and rhythm, S1, S2 without murmur, rub or gallop. ABDOMEN: Soft, mild RUQ tenderness, nondistended, normoactive bowel sounds, no guarding, no rebound, no hepatosplenomegaly, no masses. EXTREMITIES: 2+ pulses, warm, well-perfused, no edema. ASSESSMENT AND PLAN: This is a 45-year-old woman with a history of H. pylori, renal calculus, gallstones who presented to the ER for intermittent upper abdominal pain and bloating associated with meals x 2 months. 1. Acute cholecystitis and probable passed gallstone - AST/ALT/alk phos improving - CT shows multiple gallstones without wall thickening; pericholecystic fluid present; 4 mm non-obstructing right renal stone - MRCP shows cholelithiasis and acute cholecystitis - HIDA shows cystic duct obstruction, acute cholecystitis - Hepatitis panel negative - Continue IV fluid, clear liquid diet - Flagyl not available, so Meropenem started - Surgery consult for lap lisset
--- NOTE | 2016-10-14 14:57 | PN ---
Physical Exam: SUBJECTIVE: Patient seen and examined by me at bedside. Patient is resting comfortably and reports mild pain in the right upper quadrant that worsens on palpation or when walking and moving around. She reports having this problem for about 10 years now. Patient also reports having severe gas. Explained to her that she will likely be having a procedure to remove the Gallstone within the next 24 hours. Otherwise, patient denies fever, chills, nausea, vomiting, shortness of breath, chest pain, palpitations. OBJECTIVE: Vital Signs Period Temp Pulse Resp BP Sys/Hurst Pulse Ox Last 24 Hr 98.2 F-98.3 F 76-91 16-20 109-122/67-68 96-98 GENERAL: The patient is awake, alert, and fully oriented, in no acute distress. LUNGS: Breath sounds equal, clear to auscultation bilaterally, no wheezes, no crackles, no accessory muscle use. HEART: Regular rate and rhythm, S1, S2 without murmur, rub or gallop. ABDOMEN: Soft, nontender, distended, mild RUQ and epigastric tenderness upon palpation. (+) murphys sign. EXTREMITIES: No peripheral edema. Laboratory Results - last 24 hr 10/14/16 10/14/16 10/14/16 05:32 05:32 05:32 WBC 7.3 RBC 4.15 Hgb 11.0 Hct 33.1 MCV 79.7 L MCHC 33.1 RDW 15.4 Plt Count 233 MPV 8.3 Neutrophils % 61.8 Lymphocytes % 26.5 D Monocytes % 6.0 Eosinophils % 5.1 H Basophils % 0.6 INR 1.09 Sodium 142 Potassium 3.5 Chloride 107 Carbon Dioxide 24 Anion Gap 11 BUN 3 L D Creatinine 0.5 L Creat Clearance w eGFR > 60 Random Glucose 78 Calcium 8.0 L Total Bilirubin 1.1 H AST 110 H D ALT 320 H D Alkaline Phosphatase 118 H Total Protein 6.4 Albumin 3.4 Active Medications Generic Name Dose Route Start Last Admin Trade Name Freq PRN Reason Stop Dose Admin Al Hydroxide/Mg Hydroxide 30 ml 10/13/16 00:21 10/13/16 22:21 Mylanta Oral Suspension - PO 30 ml Q6H PRN Administration DYSPEPSIA Dextrose/Sodium Chloride 1,000 mls @ 125 mls/hr 10/12/16 22:15 10/14/16 02:49 D5-1/2ns - IV Not Given ASDIR JOSE ANGEL Sodium Chloride 1,000 mls @ 125 mls/hr 10/12/16 23:45 10/13/16 23:27 Normal Saline - IV 125 mls/hr ASDIR JOSE ANGEL Administration Meropenem 1 gm/ Dextrose 100 mls @ 100 mls/hr 10/14/16 02:00 10/14/16 09:29 IVPB 100 mls/hr Q8H-IV JOSE ANGEL Administration Protocol Loratadine 10 mg 10/14/16 01:00 10/14/16 09:20 Claritin - PO Not Given DAILY JOSE ANGEL ASSESSMENT/PLAN: Patient is a 45 year old female with a PMHx of H.pylori, treated 10 years ago, nephrolithiasis and asymptomatic gallstones for 10 years who presented for diffuse abdominal pain. Patient found to have Transaminitis and a CT abdomen revealed multiple Gallstones. Patient admitted for acute cholecystitis. Hepatic Transaminitis, Abdominal pain, and Elevated Alk Phos -Likely secondary to Acute cholecystitis. -Alk phos and transaminitis improving -CT abdomen revealed multiple stones. -MRCP revealed no residual CBD stones but GI suspect stone passage. May now proceed with cholecystectomy -HIDA Scan pending -Hepatitis panel negative -Continue Meropenem 1gm Q8H -Pain control PRN -Continue IV fluids with D5-1/2 NS @125mls/hr -Surgery consult placed F/E/N -On D5-1/2NS -Electrolytes wnl -NPO until HIDA Scan complete Prophylaxis -Moderate risk. SCD's and ambulation Disposition -Awiating surgery for cholecystectomy Visit type - Emergency Visit Emergency Visit: Yes ED Registration Date: 10/12/16 Care time: The patient presented to the Emergency Department on the above date and was hospitalized for further evaluation of their emergent condition. - New Patient This patient is new to me today: Yes Date on this admission: 10/14/16 - Critical Care Critical Care patient: No
--- NOTE | 2016-10-14 17:12 | CONSULT ---
Consult Consult Specialty:: infectious diseases Reason for Consultation:: choleycystitis - History of Present Illness History of Present Illness: abd pain ruq. according to the patient she has been having this for about 10 yrs also h/o of renal stones patient underwent ercp plan is choleycystectomy - History Source History Provided By: Patient Limitations to Obtaining History: No Limitations - Past Medical History Gastrointestinal: Yes: Gastritis (h. 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 History of Recent Travel: No Home Medications - Allergies Allergies/Adverse Reactions: Allergies Allergy/AdvReac Type Severity Reaction Status Date / Time amoxicillin Allergy Severe anaphylaxis Verified 10/12/16 16:26 azithromycin Allergy Severe anaphylaxis Verified 10/12/16 16:26 [From Zithromax Z-Triston] - Home Medications Home Medications: Ambulatory Orders B Cmplx 4/Vit D3/C/FA/Zinc Ox [Vital-D Rx Tablet] PO DAILY 10/13/16 Omeprazole 20 mg PO DAILY 10/13/16 Vit B12/Pyridoxine/Thiamine PO DAILY 10/13/16 Family Disease History - Family Disease History Family Disease History: Other: Father (Alive: Defibrilator w/ ? alcoholic cardiomyopathy), Mother (Alive: healthy), Brother (Alive: asthma), Sister (Alive : Asthma), Son (Alive: Healthy), Daughter (Alive: healthy) Other Family History: No family h/o colorectal cancer, liver disease, autoimmune disease or other GI malignancy Review of Systems - Review of Systems Constitutional: reports: No Symptoms Eyes: reports: No Symptoms HENT: reports: No Symptoms Neck: reports: No Symptoms Cardiovascular: reports: No Symptoms Respiratory: reports: No Symptoms Gastrointestinal: reports: Abdominal Pain, Nausea Genitourinary: reports: No Symptoms Breasts: reports: No Symptoms Reported Musculoskeletal: reports: No Symptoms Integumentary: reports: No Symptoms Neurological: reports: No Symptoms Endocrine: reports: No Symptoms Hematology/Lymphatic: reports: No Symptoms Psychiatric: reports: No Symptoms Physical Exam Vital Signs: Vital Signs Temperature 98.3 F 10/14/16 14:00 Pulse Rate 86 10/14/16 14:00 Respiratory Rate 20 10/14/16 14:00 Blood Pressure 107/67 10/14/16 14:00 O2 Sat by Pulse Oximetry (%) 96 10/14/16 08:00 Constitutional: Yes: Well Nourished, No Distress, Calm Eyes: Yes: Conjunctiva Clear HENT: Yes: Atraumatic Neck: Yes: Supple Cardiovascular: Yes: Regular Rate and Rhythm Respiratory: Yes: Regular, CTA Bilaterally Gastrointestinal: Yes: Normal Bowel Sounds, Soft Musculoskeletal: Yes: WNL Extremities: Yes: WNL Neurological: Yes: Alert, Oriented Psychiatric: Yes: Alert, Oriented Labs: CBC, BMP 10/14/16 05:32 10/14/16 05:32 Imaging - Results Cat Scan: Report Reviewed, Image Reviewed Ultrasound: Report Reviewed, Image Reviewed MRI: Report Reviewed, Image Reviewed Assessment/Plan ac choleycystitis plan will change to ertapenam from meropenam patient for or rest ct current mgmt
--- NOTE | 2016-10-14 17:15 | PN ---
GI Progress Note Subjective: No acute events Abdominal pain improved As Dr. Quintanilla's previous note reflects, MRCP reviewed with Dr. Goodman. No residual CBD stone seen however passed stone suspected - Objective Vital Signs: Vital Signs Temperature 98.3 F 10/14/16 14:00 Pulse Rate 86 10/14/16 14:00 Respiratory Rate 20 10/14/16 14:00 Blood Pressure 107/67 10/14/16 14:00 O2 Sat by Pulse Oximetry (%) 96 10/14/16 08:00 Constitutional: No Distress, Calm Eyes: No: Sclera Icterus Cardiovascular: Yes: Regular Rate and Rhythm Respiratory: Yes: CTA Bilaterally Gastrointestinal Inspection: No: Distention, Scars ...Auscultate: Yes: Normoactive Bowel Sounds ...Palpate: Yes: Tenderness (Mild TTP RUQ/Epigastrium, equivocal bahena's sign) . No: Guarding, Tenderness, Rebound ...Percussion: No: Tympanitic Edema: No Neurological: Yes: Alert, Oriented Labs: CBC, BMP 10/14/16 05:32 10/14/16 05:32 INR, PTT INR 1.09 (0.82-1.09) 10/14/16 05:32 Hepatic Panel Total Bilirubin 1.1 mg/dL (0.2-1.0) H 10/14/16 05:32 Direct Bilirubin 0.3 mg/dL (0.0-0.2) H 10/13/16 05:40 AST 110 U/L (15-37) H D 10/14/16 05:32 ALT 320 U/L (12-78) H D 10/14/16 05:32 Alkaline Phosphatase 118 U/L (45-117) H 10/14/16 05:32 Albumin 3.4 g/dl (3.4-5.0) 10/14/16 05:32 - ....Imaging Cat Scan: Report Reviewed, Image Reviewed Problem List - Problems (1) Epigastric abdominal pain Assessment/Plan: Suspect passed CBD stone as culprit ? Cholecystitis given CT scan findings, RUQ pain on exam. HIDA pending Abx adjusted per ID Monitor LFTs Surgery following Code(s): R10.13 - EPIGASTRIC PAIN
[2016-10-14] MEDS: ERTAPENEM SODIUM 1 GM in SODIUM CHLORIDE 50 ML IVPB SCH (17:59)
[2016-10-15] MEDS: DEXTROSE 5%-0.45% SALINE 1,000 ML IV SCH (01:22)
[2016-10-15] MEDS: SODIUM CHLORIDE 1,000 ML IV SCH (01:22)
[2016-10-15 07:24] LABS: BASOPHIL 0.5 % (0-2.0); EOSINOPHIL 5.5 % (0-4.5); MCH 26.8 pg (25.7-33.7); MCHC 33.4 g/dl (32.0-36.0); MEAN CELL VOLUME 80.2 fl (80-96); MEAN PLT VOLUME 7.9 fl (7.5-11.1); NEUTROPHILS 61.4 % (42.8-82.8); PLATELET COUNT 216 K/MM3 (134-434); RDW 14.9 % (11.6-15.6); WHITE BLOOD COUNT 6.7 K/mm3 (4.0-10.0)
[2016-10-15 07:52] LABS: ALBUMIN 3.1 g/dl (3.4-5.0); ANION GAP 10 (8-16); CALCIUM 7.7 mg/dL (8.5-10.1); CO2 25 mmol/L (21-32); GLUCOSE,RANDOM 79 mg/dL (74-106)
[2016-10-15 07:56] LABS: ALK PHOS 103 U/L (45-117); BILIRUBIN,TOTAL 0.9 mg/dL (0.2-1.0); CREATININE 0.6 mg/dL (0.55-1.02); SGOT/AST 42 U/L (15-37); SGPT/ALT 197 U/L (12-78)
--- NOTE | 2016-10-15 08:21 | MSN ---
Progress Note (SOAP) - Subjective Chief Complaint: Gassy stomach pains History of Present Illness: 45yo F with past medical hx H Pylori treatment 10 years ago, R renal calculi, asymptomatic gallstones. She presents due to cholelithiasis. Patient was examined at bedside. States she had HIDA scan yesterday. States she has slight headache due to the "uncomfortable bed," as well as some burning on urination. Denies light headedness, dizziness, chest pain, SOB, N/V, diarrhea/ constipation, abdominal pain, urinary frequency change, hematuria. - Current Medications Current Medications: Active Medications Al Hydroxide/Mg Hydroxide (Mylanta Oral Suspension -) 30 ml PO Q6H PRN PRN Reason: DYSPEPSIA Last Admin: 10/13/16 22:21 Dose: 30 ml Dextrose/Sodium Chloride (D5-1/2ns -) 1,000 mls @ 125 mls/hr IV ASDIR [facility] Last Admin: 10/15/16 01:22 Dose: Not Given Sodium Chloride (Normal Saline -) 1,000 mls @ 125 mls/hr IV ASDIR [facility] Last Admin: 10/15/16 01:22 Dose: 125 mls/hr Ertapenem 1 gm/ Sodium (Chloride) 50 mls @ 50 mls/hr IVPB DAILY [facility] PRN Reason: Protocol Last Admin: 10/14/16 17:59 Dose: 50 mls/hr Loratadine (Claritin -) 10 mg PO DAILY [facility] Last Admin: 10/14/16 09:20 Dose: Not Given - Objective Vital Signs: Vital Signs Temperature 98.9 F 10/15/16 06:19 Pulse Rate 78 10/15/16 06:19 Respiratory Rate 20 10/15/16 06:19 Blood Pressure 115/61 10/15/16 06:19 O2 Sat by Pulse Oximetry (%) 96 10/14/16 08:00 Constitutional: Yes: Well Nourished, No Distress, Calm Eyes: Yes: Conjunctiva Clear. No: Sclera Icterus Cardiovascular: Yes: WNL, Regular Rate and Rhythm, S1, S2. No: Gallop, Murmur Respiratory: Yes: WNL, Regular, CTA Bilaterally. No: Cough, Rales, Rhonchi, SOB , Stridor, Wheezes Gastrointestinal: Yes: WNL, Soft, Tenderness (RUQ). No: Palpable Mass Genitourinary: Yes: Other (suprapubic discomfort) Psychiatric: Yes: WNL, Alert, Oriented Labs Lab Results: CBC, BMP 10/15/16 06:25 Laboratory Results - last 24 hr 10/12/16 10/15/16 10/15/16 18:22 06:25 06:25 WBC 6.7 RBC 3.91 Hgb 10.5 L Hct 31.4 L MCV 80.2 MCHC 33.4 RDW 14.9 Plt Count 216 MPV 7.9 Neutrophils % 61.4 Lymphocytes % 26.9 Monocytes % 5.7 Eosinophils % 5.5 H Basophils % 0.5 Sodium 142 Potassium 3.8 Chloride 107 Carbon Dioxide 25 Anion Gap 10 BUN 4 L D Creatinine 0.6 Creat Clearance w eGFR > 60 Random Glucose 79 Calcium 7.7 L Total Bilirubin 0.9 AST 42 H D ALT 197 H D Alkaline Phosphatase 103 Total Protein 6.0 L Albumin 3.1 L Hepatitis A IgM Ab Negative Hep Bs Antigen Negative Hep B Core IgM Ab Negative Hepatitis C Antibody Cancelled Hepatitis C Ab (EIA) <0.1 Last Vital Signs Temp Pulse Resp BP Pulse Ox 98.9 F 78 20 115/61 96 10/15/16 06:19 10/15/16 06:19 10/15/16 06:19 10/15/16 06:19 10/14/16 08:00 Assessment/Plan 45yo F with past medical hx H Pylori treatment 10 years ago, R renal calculi, asymptomatic gallstones. She presents due to diffuse gassy abdominal pain in typical acute cholecystitis pattern and distention. Cholecystitis with stone in cystic duct - AST/ALT/alk phos/hyperbilirubinemia improving - CT shows multiple gallstones without wall thickening, and pericholecystic fluid present - MRCP showed no current stone in CBD, but evidence of stone recently passing - HIDA scan showed cystic duct obstruction. - Hepatitis panel negative - Continue IV fluid. - Per ID, on ertapenem day 3 of antibiotics - NPO at midnight tonight for cholecystectomy tomorrow with Dr Barragan. Right renal calculi with possible UTI - CT on 10/13 showed 4 mm non-obstructing right renal stone - Pt c/o slight burning on urination after HIDA scan. will run urinalysis to r/ o UTI. - advised pt to hydrate well.
--- NOTE | 2016-10-15 09:12 | PN ---
Progress Note (short form) - Note Progress Note: Pt without increased pain, slight nausea with clears. No emesis Vital Signs Period Temp Pulse Resp BP Sys/Hurst Pulse Ox Last 24 Hr 98.0 F-98.9 F 62-86 16-20 102-115/60-78 PE: GEN:appears comfortable ABD: soft, non-distended, non-tender CBC, BMP 10/15/16 06:25 10/15/16 06:25 CMP Sodium 142 mmol/L (136-145) 10/15/16 06:25 Potassium 3.8 mmol/L (3.5-5.1) 10/15/16 06:25 Chloride 107 mmol/L (98-107) 10/15/16 06:25 Carbon Dioxide 25 mmol/L (21-32) 10/15/16 06:25 Anion Gap 10 (8-16) 10/15/16 06:25 BUN 4 mg/dL (7-18) L D 10/15/16 06:25 Creatinine 0.6 mg/dL (0.55-1.02) 10/15/16 06:25 Creat Clearance w eGFR > 60 (>60) 10/15/16 06:25 Random Glucose 79 mg/dL (74-106) 10/15/16 06:25 Calcium 7.7 mg/dL (8.5-10.1) L 10/15/16 06:25 Phosphorus 3.3 mg/dL (2.5-4.9) 10/13/16 05:40 Magnesium 2.1 mg/dL (1.8-2.4) 10/13/16 05:40 Total Bilirubin 0.9 mg/dL (0.2-1.0) 10/15/16 06:25 Direct Bilirubin 0.3 mg/dL (0.0-0.2) H 10/13/16 05:40 AST 42 U/L (15-37) H D 10/15/16 06:25 ALT 197 U/L (12-78) H D 10/15/16 06:25 Alkaline Phosphatase 103 U/L (45-117) 10/15/16 06:25 Total Protein 6.0 g/dl (6.4-8.2) L 10/15/16 06:25 Albumin 3.1 g/dl (3.4-5.0) L 10/15/16 06:25 Lipase 282 U/L (73-393) 10/12/16 17:10 US-sludge, no thickening, fluid CT scan: small stones in the GB MRCP: no CBD filling defect Hida: No filling Gallbladder after 2 hours A/P: 45 yo female with gallstones, LFTs improving. afebrile with normal WBC and non-tender Will plan for possible surgery tomorrow T&S x 2 D/w Dr. Barragan and schedule for 10/17, npo after midnight
[2016-10-15] MEDS ORDERED: PT OWN MED DRAWER 7, Y5N ONE (09:35)
[2016-10-15] MEDS: ERTAPENEM SODIUM 1 GM in SODIUM CHLORIDE 50 ML IVPB SCH (09:39)
[2016-10-15] MEDS: LORATADINE 10 MG TABLET PO SCH (09:39)
--- NOTE | 2016-10-15 09:51 | PN ---
Progress Note (short form) - Note Progress Note: Attending Surgeon Patient seen and evaluated; concur w/ a/p as outlined by the PA; for aziza lisset 10/15/16; r/b/t/a's d/w patient who wishes to proceed; pre-op teaching was done. Maik Barragan MD FACS
--- NOTE | 2016-10-15 15:04 | PN ---
Teaching Attending Note Name of Resident: Viktoriya Hills ATTENDING PHYSICIAN STATEMENT I saw and evaluated the patient. I reviewed the resident's note and discussed the case with the resident. I agree with the resident's findings and plan as documented. SUBJECTIVE:c/o urinary frequency and burning on urination. denies CP, SOB, fever , chills, vaginal discharge. tolerating liquid diet OBJECTIVE: Last Vital Signs Temp Pulse Resp BP Pulse Ox 97.9 F 84 20 111/59 96 10/15/16 08:00 10/15/16 08:00 10/15/16 08:00 10/15/16 08:00 10/15/16 08:00 General NAD CV S1 S2 RRR no murmur/rub/gallop Lungs CTA B/L no wheezing/rales/rhonchi Abdomen +suprapubic tenderness +bahena sign no rebound or guarding +BS ASSESSMENT AND PLAN: 45-year-old woman with a history of H. pylori, renal calculus, gallstones who presented to the ER and was admitted for further evaluation of their emergent condition 1. Acute cholecystitis and probable passed gallstone. transaminitis trending down. tolerating liquid diet. NPO tonight for lap cholecystectomy in the AM. HIDA and MRCP showing cystic duct dilation. on Ertapenem due to shortage of flagyl. ID, surgery and GI on board 2. URinary frequency- likely due to IVF. can d/c for now. check UA for infection although already on abx treatment 3. d/c planning pending results of surgery.
--- NOTE | 2016-10-15 16:14 | PN ---
Physical Exam: SUBJECTIVE: Patient seen and examined by me at bedside. No overnight events noted. Patient states pain is much better and is only elicited when palpating. Patient denies fever, chills, nausea, vomiting, headache, chest pain, palpitations, shortness of breath. OBJECTIVE: Vital Signs Period Temp Pulse Resp BP Sys/Hurst Pulse Ox Last 24 Hr 98.1 F 88 117/67 GENERAL: The patient is awake, alert, and fully oriented, in no acute distress. LUNGS: Breath sounds equal, clear to auscultation bilaterally, no wheezes, no crackles, no accessory muscle use. HEART: Regular rate and rhythm, S1, S2 without murmur, rub or gallop. ABDOMEN: Soft, nontender, distended, mild RUQ and epigastric tenderness upon palpation. (+) murphys sign. EXTREMITIES: No peripheral edema. Laboratory Results - last 24 hr 10/15/16 10:24 Blood Type A POSITIVE Antibody Screen Negative Active Medications Generic Name Dose Route Start Last Admin Trade Name Freq PRN Reason Stop Dose Admin Al Hydroxide/Mg Hydroxide 30 ml 10/13/16 00:21 10/13/16 22:21 Mylanta Oral Suspension - PO 30 ml Q6H PRN Administration DYSPEPSIA Dextrose/Sodium Chloride 1,000 mls @ 125 mls/hr 10/12/16 22:15 10/15/16 01:22 D5-1/2ns - IV Not Given ASDIR [facility] Sodium Chloride 1,000 mls @ 125 mls/hr 10/12/16 23:45 10/15/16 01:22 Normal Saline - IV 125 mls/hr ASDIR [facility] Administration Ertapenem 1 gm/ Sodium 50 mls @ 50 mls/hr 10/14/16 17:15 10/15/16 09:39 Chloride IVPB 50 mls/hr DAILY JOSE ANGEL Administration Protocol Loratadine 10 mg 10/14/16 01:00 10/15/16 09:39 Claritin - PO 10 mg DAILY JOSE ANGEL Administration ASSESSMENT/PLAN: Patient is a 45 year old female with a PMHx of H.pylori, treated 10 years ago, nephrolithiasis and asymptomatic gallstones for 10 years who presented for diffuse abdominal pain. Patient found to have Transaminitis and a CT abdomen revealed multiple Gallstones. Patient admitted for acute cholecystitis. Acute Cholecystitis with Cystic Duct Obstruction -Alk phos and transaminitis improving -CT abdomen revealed multiple stones. -MRCP revealed no residual CBD stones but GI suspect stone passage. -HIDA Scan revealed cystic duct obstruction -Continue Meropenem 1gm Q8H Day #2 due to Flagyl shortage -Anticipating surgery for cholecystectomy tomorrow -Pain control PRN -Continue IV fluids with D5-1/2 NS @125mls/hr F/E/N -On D5-1/2NS -Electrolytes wnl -Clear Liquid and NPO after midnight Prophylaxis -Moderate risk. SCD's and ambulation Disposition -Awiating surgery for cholecystectomy tomorrow Visit type - Emergency Visit Emergency Visit: Yes ED Registration Date: 10/15/16 Care time: The patient presented to the Emergency Department on the above date and was hospitalized for further evaluation of their emergent condition. - New Patient This patient is new to me today: No - Critical Care Critical Care patient: No
--- NOTE | 2016-10-15 22:16 | PN ---
Progress Note, Physician History of Present Illness: doing well no issues some abd pain - Current Medication List Current Medications: Active Medications Al Hydroxide/Mg Hydroxide (Mylanta Oral Suspension -) 30 ml PO Q6H PRN PRN Reason: DYSPEPSIA Last Admin: 10/13/16 22:21 Dose: 30 ml Dextrose/Sodium Chloride (D5-1/2ns -) 1,000 mls @ 125 mls/hr IV ASDIR [facility] Last Admin: 10/15/16 01:22 Dose: Not Given Sodium Chloride (Normal Saline -) 1,000 mls @ 125 mls/hr IV ASDIR [facility] Last Admin: 10/15/16 01:22 Dose: 125 mls/hr Ertapenem 1 gm/ Sodium (Chloride) 50 mls @ 50 mls/hr IVPB DAILY [facility] PRN Reason: Protocol Last Admin: 10/15/16 09:39 Dose: 50 mls/hr Loratadine (Claritin -) 10 mg PO DAILY [facility] Last Admin: 10/15/16 09:39 Dose: 10 mg - Objective Vital Signs: Vital Signs Temperature 98.0 F 10/15/16 18:00 Pulse Rate 87 10/15/16 18:00 Respiratory Rate 20 10/15/16 18:00 Blood Pressure 132/72 10/15/16 18:00 O2 Sat by Pulse Oximetry (%) 96 10/15/16 08:00 Constitutional: Yes: No Distress, Calm Cardiovascular: Yes: Regular Rate and Rhythm Respiratory: Yes: Regular, CTA Bilaterally Gastrointestinal: Yes: Normal Bowel Sounds, Soft Musculoskeletal: Yes: WNL Extremities: Yes: WNL Neurological: Yes: Alert, Oriented Psychiatric: Yes: Alert, Oriented Labs: INR, PTT INR 1.09 (0.82-1.09) 10/14/16 05:32 Assessment/Plan ac choleycystitis plan continue abx for surgery
[2016-10-16 07:50] LABS: MCH 26.7 pg (25.7-33.7); MCHC 33.5 g/dl (32.0-36.0); MEAN CELL VOLUME 79.8 fl (80-96); MEAN PLT VOLUME 8.3 fl (7.5-11.1); PLATELET COUNT 255 K/MM3 (134-434); WHITE BLOOD COUNT 7.3 K/mm3 (4.0-10.0)
[2016-10-16 08:38] LABS: ALBUMIN 3.7 g/dl (3.4-5.0); ALK PHOS 105 U/L (45-117); ANION GAP 10 (8-16); BILIRUBIN,TOTAL 0.9 mg/dL (0.2-1.0); CALCIUM 8.3 mg/dL (8.5-10.1); CO2 23 mmol/L (21-32); COCKROFT - GAULT 134.6825; CREATININE 0.5 mg/dL (0.55-1.02); GLUCOSE,RANDOM 89 mg/dL (74-106); SGOT/AST 27 U/L (15-37); SGPT/ALT 153 U/L (12-78); TOT PROT 6.8 g/dl (6.4-8.2)
--- NOTE | 2016-10-16 08:51 | PN ---
Addendum entered and electronically signed by Viktoriya Hills RES 10/16/16 15:05 : Patient's surgery postponed to 1630 today. Original Note: Physical Exam: SUBJECTIVE: Patient seen and examined by me at bedside. No overnight events noted. Patient reports her abdominal pain is much better and that her gas resided. She reports the pain is now more focused in the right upper quadrant rather than diffuse abdominal pain with the pain described as cramping in nature. She reports having some episodes of diarrhea yesterday but improved when she was placed on NPO. Otherwise, patient reports feeling nervous for the surgery scheduled today. She denies fever, chills, nausea, vomiting, chest pain , palpitations, shortness of breath. OBJECTIVE: Vital Signs Period Temp Pulse Resp BP Sys/Hurst Pulse Ox Last 24 Hr 98.0 F-98.4 F 75-88 20-20 101-132/60-72 97-98 GENERAL: The patient is awake, alert, and fully oriented, in no acute distress. LUNGS: Breath sounds equal, clear to auscultation bilaterally, no wheezes, no crackles, no accessory muscle use. HEART: Regular rate and rhythm, S1, S2 without murmur, rub or gallop. ABDOMEN: Soft, nontender,mild RUQ and epigastric tenderness upon palpation. EXTREMITIES: No peripheral edema. Laboratory Results - last 24 hr 10/15/16 10/16/16 10/16/16 10:24 06:30 06:30 WBC 7.3 RBC 4.19 Hgb 11.2 Hct 33.5 MCV 79.8 L MCHC 33.5 RDW 15.0 Plt Count 255 MPV 8.3 Sodium 142 Potassium 3.8 Chloride 109 H Carbon Dioxide 23 Anion Gap 10 BUN 4 L Creatinine 0.5 L Creat Clearance w eGFR > 60 Random Glucose 89 Calcium 8.3 L Total Bilirubin 0.9 AST 27 D ALT 153 H D Alkaline Phosphatase 105 Total Protein 6.8 Albumin 3.7 Blood Type A POSITIVE Antibody Screen Negative Active Medications Generic Name Dose Route Start Last Admin Trade Name Freq PRN Reason Stop Dose Admin Al Hydroxide/Mg Hydroxide 30 ml 10/13/16 00:21 10/13/16 22:21 Mylanta Oral Suspension - PO 30 ml Q6H PRN Administration DYSPEPSIA Dextrose/Sodium Chloride 1,000 mls @ 125 mls/hr 10/12/16 22:15 10/15/16 01:22 D5-1/2ns - IV Not Given ASDIR [facility] Sodium Chloride 1,000 mls @ 125 mls/hr 10/12/16 23:45 10/15/16 01:22 Normal Saline - IV 125 mls/hr ASDIR [facility] Administration Ertapenem 1 gm/ Sodium 50 mls @ 50 mls/hr 10/14/16 17:15 10/15/16 09:39 Chloride IVPB 50 mls/hr DAILY JOSE ANGEL Administration Protocol Loratadine 10 mg 10/14/16 01:00 10/15/16 09:39 Claritin - PO 10 mg DAILY JOSE ANGEL Administration ASSESSMENT/PLAN: Patient is a 45 year old female with a PMHx of H.pylori, treated 10 years ago, nephrolithiasis and asymptomatic gallstones for 10 years who presented for diffuse abdominal pain. Patient found to have Transaminitis and a CT abdomen revealed multiple Gallstones. Patient admitted for acute cholecystitis. Acute Cholecystitis with Cystic Duct Obstruction -Alk phos and transaminitis continues to improve -Scheduled for surgery today -Continue Meropenem 1gm Q8H Day #3 due to Flagyl shortage -Pain control PRN -Continue IV fluids with D5-1/2 NS @125mls/hr F/E/N -On D5-1/2NS -Electrolytes wnl -NPO until surgery and may then resume regular diet Prophylaxis -Moderate risk. SCD's and ambulation Disposition -Scheduled for surgery today. Visit type - Emergency Visit Emergency Visit: Yes ED Registration Date: 10/15/16 Care time: The patient presented to the Emergency Department on the above date and was hospitalized for further evaluation of their emergent condition. - New Patient This patient is new to me today: No - Critical Care Critical Care patient: No
[2016-10-16 09:25] LABS: URINE APPEARANCE CLEAR; URINE BILIRUBIN NEGATIVE (NEGATIVE); URINE BLOOD NEGATIVE (NEGATIVE); URINE COLOR COLORLESS; URINE GLUCOSE (UA) NEGATIVE (NEGATIVE); URINE KETONE NEGATIVE (NEGATIVE); URINE NITRITE NEGATIVE (NEGATIVE); URINE PROTEIN NEGATIVE (NEGATIVE); URINE UROBILINOGEN NEGATIVE E.U./dl (0.2-1.0)
[2016-10-16 09:49] LABS: URINE LEUK ESTERASE TRACE (NEGATIVE)
[2016-10-16 09:50] LABS: URINE RBC <1 /hpf (0-3); URINE WBC 1 /hpf (3-5)
[2016-10-16] MEDS ORDERED: PT OWN MED DRAWER 7, Y5N ONE (10:47)
[2016-10-16] MEDS: LORATADINE 10 MG TABLET PO SCH (10:50)
[2016-10-16] MEDS: ERTAPENEM SODIUM 1 GM in SODIUM CHLORIDE 50 ML IVPB SCH (10:50)
--- NOTE | 2016-10-16 11:45 | PN ---
Teaching Attending Note Name of Resident: Viktoriya Hills ATTENDING PHYSICIAN STATEMENT I saw and evaluated the patient. I reviewed the resident's note and discussed the case with the resident. I agree with the resident's findings and plan as documented. SUBJECTIVE:c/o suprapubic discomfort. states she no longer has urinary frequency. no dysuria, hematuria, N/V/C/D, tolerating liquid diet OBJECTIVE: Last Vital Signs Temp Pulse Resp BP Pulse Ox 98.4 F 75 20 101/60 98 10/16/16 06:05 10/16/16 06:05 10/16/16 06:05 10/16/16 06:05 10/16/16 04:00 General NAD CV S1 S2 RRR no murmur/rub/gallop Lungs CTA B/L no wheezing/rales/rhonchi Abdomen soft RUQ tenderness no rebound or guarding. +BS ASSESSMENT AND PLAN: 45-year-old woman with a history of H. pylori, renal calculus, gallstones who presented to the ER and was admitted for further evaluation of their emergent condition 1. Acute cholecystitis- likely passed gallstone. LFT normalizing. NPO for lap cholecystectomy today. On ertapenem due to Flagyl shortage. possible d/c in the evening pending results of surgery. will d/w ID about Abx course on discharge. 2. URinary frequency-UA checked this AM. negative for infection, however been on abx already. if had infection likely being treated with ertapenem 3. d/c planning pending results of surgery.
--- NOTE | 2016-10-16 11:48 | PN ---
Progress Note, Physician History of Present Illness: stable no new issues for surgery today - Current Medication List Current Medications: Active Medications Al Hydroxide/Mg Hydroxide (Mylanta Oral Suspension -) 30 ml PO Q6H PRN PRN Reason: DYSPEPSIA Last Admin: 10/13/16 22:21 Dose: 30 ml Dextrose/Sodium Chloride (D5-1/2ns -) 1,000 mls @ 125 mls/hr IV [facility]IR [facility] Last Admin: 10/15/16 01:22 Dose: Not Given Sodium Chloride (Normal Saline -) 1,000 mls @ 125 mls/hr IV ASDIR [facility] Last Admin: 10/15/16 01:22 Dose: 125 mls/hr Ertapenem 1 gm/ Sodium (Chloride) 50 mls @ 50 mls/hr IVPB DAILY [facility] PRN Reason: Protocol Last Admin: 10/16/16 10:50 Dose: 50 mls/hr Loratadine (Claritin -) 10 mg PO DAILY [facility] Last Admin: 10/16/16 10:50 Dose: Not Given - Objective Vital Signs: Vital Signs Temperature 98.4 F 10/16/16 06:05 Pulse Rate 75 10/16/16 06:05 Respiratory Rate 20 10/16/16 06:05 Blood Pressure 101/60 10/16/16 06:05 O2 Sat by Pulse Oximetry (%) 98 10/16/16 04:00 Constitutional: Yes: No Distress, Calm Cardiovascular: Yes: Regular Rate and Rhythm Respiratory: Yes: Regular, CTA Bilaterally Gastrointestinal: Yes: Normal Bowel Sounds, Soft Musculoskeletal: Yes: WNL Extremities: Yes: WNL Neurological: Yes: Alert, Oriented Psychiatric: Yes: Alert, Oriented Labs: CBC, BMP 10/16/16 06:30 10/16/16 06:30 INR, PTT INR 1.09 (0.82-1.09) 10/14/16 05:32 Assessment/Plan ac choleycystitis plan continue abx for surgery once surgery is done can stop abx if no issues
--- NOTE | 2016-10-16 13:46 | MSN ---
Progress Note (SOAP) - Subjective Chief Complaint: gassy stomach pains History of Present Illness: 45yo F with past medical hx H Pylori treatment 10 years ago, R renal calculi, asymptomatic gallstones. She presents due to cholelithiasis. Patient was examined at bedside this morning. She is aware of cholecystectomy later today with Dr. Barragan. Denies light headedness, dizziness, chest pain, SOB , N/V, diarrhea/constipation, abdominal pain, urinary frequency change, hematuria, or dysuria. - Current Medications Current Medications: Active Medications Al Hydroxide/Mg Hydroxide (Mylanta Oral Suspension -) 30 ml PO Q6H PRN PRN Reason: DYSPEPSIA Last Admin: 10/13/16 22:21 Dose: 30 ml Dextrose/Sodium Chloride (D5-1/2ns -) 1,000 mls @ 125 mls/hr IV [facility]IR [facility] Last Admin: 10/15/16 01:22 Dose: Not Given Sodium Chloride (Normal Saline -) 1,000 mls @ 125 mls/hr IV ASDIR [facility] Last Admin: 10/15/16 01:22 Dose: 125 mls/hr Ertapenem 1 gm/ Sodium (Chloride) 50 mls @ 50 mls/hr IVPB DAILY [facility] PRN Reason: Protocol Last Admin: 10/16/16 10:50 Dose: 50 mls/hr Loratadine (Claritin -) 10 mg PO DAILY [facility] Last Admin: 10/16/16 10:50 Dose: Not Given - Objective Vital Signs: Vital Signs Temperature 98.4 F 10/16/16 10:00 Pulse Rate 78 10/16/16 10:00 Respiratory Rate 20 10/16/16 10:00 Blood Pressure 124/70 10/16/16 10:00 O2 Sat by Pulse Oximetry (%) 98 10/16/16 04:00 Constitutional: Yes: Well Nourished, No Distress, Calm Eyes: Yes: Conjunctiva Clear Cardiovascular: Yes: WNL, Regular Rate and Rhythm, S1, S2. No: Murmur, Rub, S3 , S4 Respiratory: Yes: WNL, Regular, CTA Bilaterally. No: Rales, Rhonchi, SOB, Wheezes Gastrointestinal: Yes: WNL, Normal Bowel Sounds, Soft, Tenderness (ruq) Psychiatric: Yes: WNL, Alert, Oriented Labs Lab Results: CBC, BMP 10/16/16 06:30 10/16/16 06:30 Laboratory Results - last 24 hr 10/16/16 10/16/16 10/16/16 06:30 06:30 08:15 WBC 7.3 RBC 4.19 Hgb 11.2 Hct 33.5 MCV 79.8 L MCHC 33.5 RDW 15.0 Plt Count 255 MPV 8.3 Sodium 142 Potassium 3.8 Chloride 109 H Carbon Dioxide 23 Anion Gap 10 BUN 4 L Creatinine 0.5 L Creat Clearance w eGFR > 60 Random Glucose 89 Calcium 8.3 L Total Bilirubin 0.9 AST 27 D ALT 153 H D Alkaline Phosphatase 105 Total Protein 6.8 Albumin 3.7 Urine Color Colorless Urine Appearance Clear Urine pH 7.0 Ur Specific [place] 1.010 Urine Protein Negative Urine Glucose (UA) Negative Urine Ketones Negative Urine Blood Negative Urine Nitrite Negative Urine Bilirubin Negative Urine Urobilinogen Negative Ur Leukocyte Esterase Trace H Urine RBC <1 Urine WBC 1 Ur Epithelial Cells Rare Last Vital Signs Temp Pulse Resp BP Pulse Ox 98.4 F 78 20 124/70 98 10/16/16 10:00 10/16/16 10:00 10/16/16 10:00 10/16/16 10:00 10/16/16 04:00 Assessment/Plan 45yo F with past medical hx H Pylori treatment 10 years ago, R renal calculi, asymptomatic gallstones. She presents due to diffuse gassy abdominal pain in typical acute cholecystitis pattern and distention. Cholecystitis with stone in cystic duct - AST/ALT/hyperbilirubinemia improved back to normal limits. alk phos improving. - CT showed multiple gallstones without wall thickening, and pericholecystic fluid present - MRCP showed evidence of stone recently passing - HIDA scan showed cystic duct obstruction. - Continue IV fluid. - Per ID, on ertapenem day 3 of antibiotics - Going for cholecystectomy today with Dr Barragan. D/C after surgery if stable and pt can tolerate food. Right renal calculi - CT on 10/13 showed 4 mm non-obstructing right renal stone - Pt c/o slight burning on urination after HIDA scan. Urinalysis negative for UTI. symptoms most likely not related to an infection. - advised pt to hydrate well.
[2016-10-16] MEDS ORDERED: BUPIVACAINE HCL/PF 0.5% (5MG/ML) 10 ML VIAL ONE (15:44)
[2016-10-16] MEDS ORDERED: MIDAZOLAM HCL 2 MG/2 ML SINGLE DOSE VIAL ONE (16:30)
[2016-10-16] MEDS ORDERED: PROPOFOL 20 ML ONE (16:33)
[2016-10-16] MEDS ORDERED: ROCURONIUM BROMIDE 50 MG/5 ML VIAL ONE (16:33)
[2016-10-16] MEDS ORDERED: LIDOCAINE HCL/PF 2% SDV 5ML VIAL ONE (16:35)
[2016-10-16] MEDS ORDERED: KETOROLAC TROMETHAMINE 30 MG/1 ML VIAL ONE (17:32)
[2016-10-16] MEDS ORDERED: GLYCOPYRROLATE 0.2 MG/1 ML VIAL ONE (17:32)
[2016-10-16] MEDS ORDERED: NEOSTIGMINE METHYLSULFATE 0.5 MG/ML - 10 ML MDV ONE (17:33)
[2016-10-16] MEDS ORDERED: PROMETHAZINE HCL 25 MG/1 ML VIAL IVPUSH PRN (17:50)
[2016-10-16] MEDS ORDERED: oxyCODONE HCL 5 MG TABLET PO PRN ×2 (17:50)
[2016-10-16] MEDS ORDERED: ONDANSETRON 4 MG/2 ML VIAL IVPUSH PRN (17:50)
--- NOTE | 2016-10-16 17:56 | SURG ---
Surgery Service Delivery Management Consultant Note Service Delivery Management Consultant: Saray Cintron PA-C Date of Service: 10/16/16 Diagnosis: acute cholecystitis, cholelithiasis Procedure: laparoscopic cholecystectomy I was present for the entirety of the operative procedure. For further detail, please refer to operative report. Visit type - Case Type Case Type: ED Admission
--- NOTE | 2016-10-16 17:56 | OP ---
Operative Note - Note: Operative Date: 10/16/16 Pre-Operative Diagnosis: acute cholecystitis, cholelithiasis Operation: laparoscopic cholecystectomy Post-Operative Diagnosis: Same as Pre-op Surgeon: Maik Barragan [employer] Supervisor: Saray Cintron Anesthesiologist/EARLY CHILDHOOD ASSOCIATE: Mariama Chavez Anesthesia: General Specimens Removed: gallbladder Estimated Blood Loss (mls): 10 Fluid Volume Replaced (mls): 800 Operative Report Dictated: Yes
[2016-10-16] MEDS: LACTATED RINGERS SOLUTION 1,000 ML IV SCH ×2 (20:00→20:36)
[2016-10-16] MEDS: MAG HYDROX/AL HYDROX/SIMETH 30 ML UNIT-DOSE CUP PO PRN (20:48)
[2016-10-16] MEDS ORDERED: oxyCODONE HCL 5 MG TABLET PO ONE (22:20)
[2016-10-17] MEDS: MAG HYDROX/AL HYDROX/SIMETH 30 ML UNIT-DOSE CUP PO PRN (03:51)
[2016-10-17] MEDS ORDERED: ONDANSETRON 4 MG/2 ML VIAL IVPUSH PRN (04:06)
[2016-10-17] MEDS: LACTATED RINGERS SOLUTION 1,000 ML IV SCH (05:57)
[2016-10-17 08:13] LABS: ALBUMIN 3.4 g/dl (3.4-5.0); ALK PHOS 120 U/L (45-117); ANION GAP 12 (8-16); BILIRUBIN,TOTAL 1.1 mg/dL (0.2-1.0); CALCIUM 8.3 mg/dL (8.5-10.1); CO2 24 mmol/L (21-32); COCKROFT - GAULT 168.3595; CREATININE 0.4 mg/dL (0.55-1.02); GLUCOSE,RANDOM 107 mg/dL (74-106); SGOT/AST 81 U/L (15-37); SGPT/ALT 150 U/L (12-78); TOT PROT 6.6 g/dl (6.4-8.2)
[2016-10-17] MEDS: ACETAMINOPHEN 325 MG TABLET (FP) PO PRN ×2 (08:42→12:52)
[2016-10-17] MEDS ORDERED: LORATADINE 10 MG TABLET PO SCH (10:00)
--- NOTE | 2016-10-17 11:05 | PN ---
Progress Note (short form) - Note Progress Note: Atending Surgeon POD #1 vomited x 2; feels better now VSS AF abdo-soft; flat/nontender; port sites c/d/i Labs pending IMP: doing well PLAN: diet as tolerated and then can be d/c'ed to OPD f/u. Maik Barragan MD FACS
[2016-10-17 11:44] LABS: MCH 26.1 pg (25.7-33.7); MCHC 32.7 g/dl (32.0-36.0); MEAN PLT VOLUME 8.7 fl (7.5-11.1); PLATELET COUNT 247 K/MM3 (134-434); RDW 15.3 % (11.6-15.6); WHITE BLOOD COUNT 12.5 K/mm3 (4.0-10.0)
--- NOTE | 2016-10-17 13:41 | PN ---
Teaching Attending Note Name of Resident: Viktoriya Hills ATTENDING PHYSICIAN STATEMENT I saw and evaluated the patient. I reviewed the resident's note and discussed the case with the resident. I agree with the resident's findings and plan as documented. SUBJECTIVE:nausea and vomiting after receiving pain medication this AM. states she had bad marky pains last night which have improved. has desire to eat now. tolerated very little breakfast. denies CP, SOB,fever, chills, urinary frequency or dysuria OBJECTIVE: Last Vital Signs Temp Pulse Resp BP Pulse Ox 97.7 F 78 18 114/74 98 10/17/16 08:00 10/17/16 08:00 10/17/16 08:00 10/17/16 08:00 10/17/16 04:00 General NAD Abdomen soft NT, mild distention. port sites with bandage c/d/i. +BS ASSESSMENT AND PLAN: 45-year-old woman with a history of H. pylori, renal calculus, gallstones who presented to the ER and was admitted for further evaluation of their emergent condition 1. Acute cholecystitis- likely passed gallstone. s/p laprascopic cholecystectomy on 10/16. slight uptrend in LFT likely due to surgery and impacted cystic duct noted during surgery. nausea likely due to perocet. will advance diet and see if tolerates. if she does can d/c home. f/u in office next week to check LFT. no abx needed on d/c. 2. URinary frequency-resolved. UA negative 3. d/c home pending tolerates regular diet.
--- NOTE | 2016-10-17 13:45 | DS ---
Physical Exam: SUBJECTIVE: Patient seen and examined by me at bedside. POD #1 s/p cholecystecomy. Patient tolerated procedure well but reports having moderate abdominal pain last night and gas that required her to take pain medication. Patient reports the pain medication, Roxicodone, made her nauseated and was given Zofran . Patient was unable to tolerate dinner last night due to severe pain of abdomen. This morning she vomited twice but reports the pain medication made her feel nauseated. She was given Tylenol for pain and patient responded well as well as tolerate solid food. Otherwise, patient denies fever , chills, nausea, vomiting, chest pain, palpitations, shortness of breath. OBJECTIVE: Vital Signs Period Temp Pulse Resp BP Sys/Hurst Pulse Ox Last 24 Hr 97.2 F-98.3 F 77-103 14-22 114-135/69-93 97-100 PHYSICAL EXAM GENERAL: The patient is awake, alert, and fully oriented, in no acute distress. LUNGS: Breath sounds equal, clear to auscultation bilaterally, no wheezes, no crackles, no accessory muscle use. HEART: Regular rate and rhythm, S1, S2 without murmur, rub or gallop. ABDOMEN: Soft, distended with mild tenderness upon palpitation of midabdominal region. Surgical dressing clean, intact, and dry. EXTREMITIES: No peripheral edema. LABS Laboratory Results - last 24 hr 10/17/10/17/16 06:10 06:10 WBC 12.5 H D RBC 4.13 Hgb 10.8 Hct 33.1 MCV 80.0 MCHC 32.7 RDW 15.3 Plt Count 247 MPV 8.7 Sodium 138 Potassium 3.7 Chloride 102 Carbon Dioxide 24 Anion Gap 12 BUN 3 L D Creatinine 0.4 L Creat Clearance w eGFR > 60 Random Glucose 107 H D Calcium 8.3 L Total Bilirubin 1.1 H D AST 81 H D ALT 150 H Alkaline Phosphatase 120 H Total Protein 6.6 Albumin 3.4 HOSPITAL COURSE: Patient is a 45 year old female with a PMHx of H.Pylori, nephrolithiasis, asymptomatic cholelithiasis who presented for diffuse abdominal pain. Patient was found to have transaminitis and a CT abdomen revealed multiple gallstones. MRCP and HIDA scan was done and patient was found to have acute cholecystitis with obstructive cystic duct. Patient was placed on fluids, antibiotics for biliary infection coverage, and pain medication. Patient was placed on NPO and scheduled Laproscopic cholecystecomy. Patient is POD #1 and has had no complications. Patient is tolerating regular solid diet and is walking around. She reports having two bowel movements and flatus. Antibiotics stopped, as per surgery, and patient throughout the hospital stay remained afebrile. Patient clinically improved and ready for discharge. Recommendations to follow up with Surgeon and PCP. Date of Admission:10/15/16 Date of Discharge: 10/17/16 Minutes to complete discharge: 45 Discharge Summary Reason For Visit: EPIGASTRIC ABD PAIN ELEVATED LFT'S Current Active Problems Acute calculous cholecystitis (Acute) Acute cholecystitis (Acute) Elevated LFTs (Acute) Epigastric abdominal pain (Acute) Condition: Stable - Instructions Diet, Activity, Other Instructions: -Avoid fatty or fried food for now. -You will be experiencing pain and gas after surgery. You may take Tylenol for relief -Continue to stay hydrated -Follow up with the surgeon in one week -Follow up with primary care doctor in one week -If you notice any large amount of drainage, blood, or pus from the surgery site , return to the emergency room -If you begin to have fevers >101.0 F, severe vomiting, severe abdominal pain, return to the emergency room Referrals: Maik Barragan MD [Staff Physician] - Syd Castillo MD [Staff Physician] - Disposition: HOME - Home Medications Comprehensive Discharge Medication List: Ambulatory Orders B Cmplx 4/Vit D3/C/FA/Zinc Ox [Vital-D Rx Tablet] PO DAILY 10/13/16 Omeprazole 20 mg PO DAILY 10/13/16 Vit B12/Pyridoxine/Thiamine PO DAILY 10/13/16 This patient is new to me today: No Emergency Visit: Yes ED Registration Date: 10/15/16 Care time: The patient presented to the Emergency Department on the above date and was hospitalized for further evaluation of their emergent condition. Critical Care patient: No - Discharge Referral Referred to [facility] Med [facility] No
--- NOTE | 2016-10-17 13:49 | PN ---
Progress Note, Physician History of Present Illness: post op doing well no issues had a bout of vomiting some post op pain - Current Medication List Current Medications: Active Medications Acetaminophen (Tylenol -) 650 mg PO Q4H PRN PRN Reason: FEVER OR PAIN Last Admin: 10/17/16 12:52 Dose: 650 mg Al Hydroxide/Mg Hydroxide (Mylanta Oral Suspension -) 30 ml PO Q6H PRN PRN Reason: DYSPEPSIA Last Admin: 10/17/16 03:51 Dose: 30 ml Lactated Ringer's (Lactated Ringers Solution) 1,000 mls @ 100 mls/hr IV ASDIR JOSE ANGEL Last Admin: 10/17/16 05:57 Dose: 100 mls/hr Loratadine (Claritin -) 10 mg PO DAILY [facility] Last Admin: 10/17/16 11:23 Dose: 10 mg Ondansetron HCl (Zofran Injection) 4 mg IVPUSH Q6H PRN PRN Reason: NAUSEA AND/OR VOMITING Last Admin: 10/17/16 05:57 Dose: 4 mg Oxycodone HCl (Roxicodone -) 5 mg PO Q4H PRN PRN Reason: PAIN Last Admin: 10/16/16 22:08 Dose: 5 mg Oxycodone HCl (Roxicodone -) 10 mg PO Q4H PRN PRN Reason: SEVERE PAIN Stop: 10/17/16 17:49 Last Admin: 10/16/16 20:33 Dose: 10 mg - Objective Vital Signs: Vital Signs Temperature 97.7 F 10/17/16 08:00 Pulse Rate 78 10/17/16 08:00 Respiratory Rate 18 10/17/16 08:00 Blood Pressure 114/74 10/17/16 08:00 O2 Sat by Pulse Oximetry (%) 98 10/17/16 04:00 Constitutional: Yes: No Distress, Calm Cardiovascular: Yes: Regular Rate and Rhythm Respiratory: Yes: Regular, CTA Bilaterally Gastrointestinal: Yes: Normal Bowel Sounds, Soft Musculoskeletal: Yes: WNL Extremities: Yes: WNL Wound/Incision: Yes: Clean/Dry Neurological: Yes: Alert, Oriented Psychiatric: Yes: Alert Labs: CBC, BMP 10/17/16 06:10 10/17/16 06:10 INR, PTT INR 1.09 (0.82-1.09) 10/14/16 05:32 Assessment/Plan ac choleycystitis plan stopped all abx follow
--- NOTE | 2016-10-17 14:04 | PN ---
Progress Note (short form) - Note Progress Note: Anesthesia postop note 45 y/o F s/p GA for Laparoscopic cholecistectomy POD#1, vss, aaox3, no complaints. No anesthesia complications.
[2016-10-17 14:44] VITALS: BP 139/78; PULSE 80; TEMP 98.6
--- NOTE | 2016-10-19 10:25 | OP ---
DATE OF OPERATION: 10/16/2016 PREOPERATIVE DIAGNOSIS: Acute cholecystitis. POSTOPERATIVE DIAGNOSIS: Acute cholecystitis. PROCEDURE: Laparoscopic cholecystectomy. SURGEON: Maik Barragan MD [employer] SUPERVISOR: Saray Cintron PA-C ANESTHESIA: General. OPERATIVE FINDINGS: Cholelithiasis, acute cholecystitis. The rest of the findings were unremarkable. DESCRIPTION OF PROCEDURE: The patient was placed on the operating table in supine position, and after the induction of general anesthesia and placement of sequential compression devices on the patients lower extremities, the abdomen was prepped with ChloraPrep and draped in sterile fashion. A time-out was taken, and pneumoperitoneum was established above the umbilicus using a Veress needle. Once 15 mmHg pressure was obtained, a 5-mm port was placed at the umbilicus. A 12-mm subxiphoid port and 5-mm lateral ports were placed, as well, under laparoscopic visualization. The previously noted findings were observed. The gallbladder was then decompressed with a needle to facilitate grasping of the fundus. The gallbladder was then placed on cephalad and lateral traction, and dissection was begun in the triangle of Calot, where the cystic duct was identified coursing from the neck of the gallbladder distally to the common bile duct. It was dissected bluntly, proximally, and distally for length after the peritoneum was opened using electrocautery over the neck of the gallbladder medially and laterally. The cystic artery was similarly identified and dissected. The duct was then twice distally and twice proximally with large hemoclips as was the artery after a critical view of safety was taken. The duct and artery were divided using the EndoShears. Hemostasis was checked for and noted to be good. Then, the gallbladder was removed from the liver bed in a retrograde fashion using electrocautery. Prior to removal from the edge of the liver, hemostasis was again verified, and then, the gallbladder was then removed from the edge of the liver, placed in an EndoCatch, and brought out through the subxiphoid port. Pneumoperitoneum was reestablished, hemostasis verified again, and then, all ports were removed under laparoscopic visualization without evidence of bleeding from the port sites. The pneumoperitoneum was evacuated, and the port sites infiltrated with 0.5% Marcaine. The skin edges in all cases were closed with 4-0 Biosyn in a subcuticular continuous fashion followed by Steri-Strips and Band-Aid dressings. Patient was then aroused from general anesthesia and transferred to the post-anesthesia care unit in stable condition, awake and alert. ESTIMATED BLOOD LOSS: Minimal. DRAINS: None. SPECIMENS: Gallbladder and contents to Pathology. I, Maik Barragan, was physically present in the operating room from the time the patient was placed on the operating table until she was transferred to the post-anesthesia care unit in my accompaniment. MD SOL Daniels/[id number]
--- NOTE | 2016-10-23 11:19 | PATH ---
Surgical Pathology Report Patient Name: JEEVAN MORALES [facility]. Rec. #: [id number] /Age/Gender: 1970 (Age: 45) / F Account: [id number] Location: [address] [place] [address]/[facility] Taken: 10/16/2016 Received: 10/17/2016 Reported: 10/18/2016 Physicians: Maik Barragan MD Specimen(s) Received GALLBLADDER Clinical History Cholecystitis Final Diagnosis GALLBLADDER, CHOLECYSTECTOMY: CHRONIC CHOLECYSTITIS AND CHOLELITHIASIS. Electronically Signed Jero Yañez M.D. Gross Description Received in formalin, labeled "gallbladder," is a 9.0 x 2.0 x 2.0 cm. gallbladder with a 0.2 cm. in length portion of cystic duct attached. The outer surface is guerrier-herbert and varies from smooth to shaggy. The lumen contains green, gelatinous bile as well as abundant brown, irregular choleliths ranging from 0.1-0.3 cm in greatest dimension. The mucosa is green and focally eroded. The wall of the gallbladder is focally edematous and ranges from 0.1-0.4 cm. in thickness. Shredder Picker sections are submitted in one cassette. 10/17/2016 [facility]10/17/2016
== END 2016-10-17 15:29 | disposition home or self-care (01) | DRG 263 ==
LOC: JER 16:25 → JERBED 22:13 → J6S 10-13 01:18 → OBSVTOIN 10-15 08:55
PROVIDERS: ADMIT Internal Medicine; ATTEND Internal Medicine
PROC: 0FT44ZZ Resection of Gallbladder, Percutaneous Endoscopic Approach (ICD-10-PCS; principal; 2016-10-16 16:00)
DX: K80.00 Calculus of gallbladder with acute cholecystitis without obstruction (principal); R74.0 Nonspecific elevation of levels of transaminase and lactic acid dehydrogenase [LDH]; N20.0 Calculus of kidney; K21.9 Gastro-esophageal reflux disease without esophagitis; K29.70 Gastritis, unspecified, without bleeding; R35.0 Frequency of micturition
CPT/HCPCS: 36415; 71010-TC; 74177-TC; 74181-TC; 76705-TC; 78226-TC; 80053; 80074; 80307; 81003; 81015; 82248; 83690; 83735; 84100; 84703; 85025; 85027; 85610; 86803; 86850; 86900; 86901; 88304-TC; 93005; 93010; 94760; 99283-25; A9537; G0378

== ENCOUNTER 2016-10-20 06:27 | Emergency (ER) | payer OTHER ==
--- NOTE | 2016-10-20 06:35 | PDOC ---
History of Present Illness - General History Source: Patient Exam Limitations: No Limitations - History of Present Illness Initial Comments: 10/20/16 06:58 The patient is a 45-year-old female with a significant past medical history of 4 days post-op laparoscopic cholecystectomy for her acute cholecystitis and gallstones, and presents to the emergency department with diffuse abdominal pain since 10pm last night. She reports she had no pain immediately after the procedure, but the abdominal pain started after she ate applesauce last night, and believes the pain may be related to gas. She reports the pain is worsened with inspiration, movement, and in the supine position. She states that she last took Tylenol at 5am and had Gaviscon. She had a normal bowel movement prior to arrival to the ED. The patient denies chest pain, shortness of breath, headache and dizziness. The patient denies fever, chills, nausea, vomit, diarrhea and constipation. The patient denies dysuria, frequency, urgency and hematuria. Allergies: amoxicillin, azithromycin Past Surgical History: laparoscopic cholecystectomy (10/16/16) Social History: No toxic habits reported Surgeon: Maik Barragan <Ashia Marin - Last Filed: 10/20/16 07:02> <Debora Chavis - Last Filed: 10/21/16 01:26> - General Stated Complaint: POST OP SURGERY Time Seen by Provider: 10/20/16 06:34 Past History <Ashia Marin - Last Filed: 10/20/16 07:02> - Past Medical History Anemia: Yes Asthma: Yes GI Disorders: Yes (gall stones) Disorders: Yes (kidney stone) Kidney Stones: Yes - Psycho/Social/Smoking Cessation Hx Anxiety: No Suicidal Ideation: No Smoking History: Never smoked Hx Alcohol Use: No Drug/Substance Use Hx: No Substance Use Type: None <Debora Chavis - Last Filed: 10/21/16 01:26> - Past Medical History Allergies/Adverse Reactions: Allergies Allergy/AdvReac Type Severity Reaction Status Date / Time amoxicillin Allergy Severe anaphylaxis Verified 10/20/16 06:46 azithromycin Allergy Severe anaphylaxis Verified 10/20/16 06:46 [From Zithromax Z-Triston] Home Medications: Ambulatory Orders B Cmplx 4/Vit D3/C/FA/Zinc Ox [Vital-D Rx Tablet] 1 tab PO DAILY 10/13/16 Omeprazole 20 mg PO DAILY 10/13/16 Vit B12/Pyridoxine/Thiamine [Apatate Liquid] 120 ml PO DAILY #0 10/13/16 Dicyclomine HCl [Bentyl] 10 mg PO QID #40 capsule 10/20/16 Simethicone [Phazyme] 250 mg PO TID #30 capsule 10/20/16 Review of Systems - Review of Systems Able to Perform ROS?: Yes Comments:: 10/20/16 06:58 CONSTITUTIONAL: Absent: fever, chills, diaphoresis, generalized weakness, malaise, loss of appetite HEENT: Absent: rhinorrhea, nasal congestion, throat pain, throat swelling, difficulty swallowing, mouth swelling, ear pain, eye pain, visual changes CARDIOVASCULAR: Absent: chest pain, syncope, palpitations, irregular heart rate, lightheadedness , peripheral edema RESPIRATORY: Absent: cough, shortness of breath, dyspnea with exertion, orthopnea, wheezing, stridor, hemoptysis GASTROINTESTINAL: Present: (+) abdominal pain Absent: abdominal distension, nausea, vomiting, diarrhea, constipation, melena, hematochezia GENITOURINARY: Absent: dysuria, frequency, urgency, hesitancy, hematuria, flank pain, genital pain MUSCULOSKELETAL: Absent: myalgia, arthralgia, joint swelling SKIN: Absent: rash, itching, pallor HEMATOLOGIC/IMMUNOLOGIC: Absent: easy bleeding, easy bruising, lymphadenopathy, frequent infections ENDOCRINE: Absent: unexplained weight gain, unexplained weight loss, heat intolerance, cold intolerance NEUROLOGIC: Absent: headache, focal weakness or paresthesias, dizziness, unsteady gait, seizure, mental status changes, bladder or bowel incontinence PSYCHIATRIC: Absent: anxiety, depression, suicidal or homicidal ideation, hallucinations. <Ashia Marin - Last Filed: 10/20/16 07:02> *Physical Exam - Vital Signs Last Vital Signs Temp Pulse Resp BP Pulse Ox 97.7 F 89 19 129/87 100 10/20/16 06:42 10/20/16 06:42 10/20/16 06:42 10/20/16 06:42 10/20/16 06:42 - Physical Exam Comments: 10/20/16 06:59 GENERAL: (+) Afebrile. Well developed, well nourished. Awake and alert. No acute distress. HEENT: Normocephalic, atraumatic. PERRLA, EOMI. No conjunctival pallor. Sclera are non- icteric. Moist mucous membranes. Oropharynx is clear. NECK: Supple. Full ROM. No JVD. Carotid pulses 2+ and symmetric, without bruits. No thyromegaly. No lymphadenopathy. CARDIOVASCULAR: Regular rate and rhythm. No murmurs, rubs, or gallops. Distal pulses are 2+ and symmetric. PULMONARY: No evidence of respiratory distress. Lungs clear to auscultation bilaterally. No wheezing, rales or rhonchi. ABDOMINAL: (+) No erythema or warmth in the belly. (+) Healing surgical scars beneath unopened small dressings. (+) Minimal normal post-op tenderness over surgical wounds. (+) Slightly gassy bowel sounds. Soft. Non-distended. No rebound or guarding. No organomegaly. MUSCULOSKELETAL Normal range of motion at all joints. No bony deformities or tenderness. No CVA tenderness. EXTREMITIES: No cyanosis. No clubbing. No edema. No calf tenderness. SKIN: Warm and dry. Normal capillary refill. No rashes. No jaundice. NEUROLOGICAL: Alert, awake, appropriate. Cranial nerves 2-12 intact. No deficits to light touch and temperature in face, upper extremities and lower extremities. No motor deficits in the in face, upper extremities and lower extremities. Normoreflexic in the upper and lower extremities. Normal speech. Toes are down- going bilaterally. Gait is normal without ataxia. PSYCHIATRIC: Cooperative. Good eye contact. Appropriate mood and affect. <Ashia Marin - Last Filed: 10/20/16 07:02> ED Treatment Course - Medications Given in the ED: ED Medications Discontinued Medications Generic Name Dose Route Start Last Admin Trade Name Freq PRN Reason Stop Dose Admin Dicyclomine HCl 10 mg 10/20/16 06:46 10/20/16 06:54 Bentyl Oral Solution - PO 10/20/16 06:47 1 cap ONCE ONE Administration Simethicone 40 mg 10/20/16 06:47 10/20/16 06:54 Mylicon Liquid - PO 10/20/16 06:48 40 mg NOW ONE Administration <Ashia Marin - Last Filed: 10/20/16 07:02> - LABORATORY CBC & Chemistry Diagram: 10/20/16 06:52 10/20/16 06:52 <Debora Chavis - Last Filed: 10/21/16 01:26> Medical Decision Making - Medical Decision Making 10/20/16 06:48 Pt comes with post op abd pain. 4 days ago she had lap lisset. SHe had no abd pain after the procedure. But yesterday after eating applesauce she ishaving a lot of pain. Pt has trapped gas and she took gaviscon without relief. Pt will be treated with bentyl and simethicone in the ER. We will check CBC and CHEM panel, to compare to the bloods done in the past 4 days. Pt took tylenol at home 2 hrs ago and she is refusing morphine, as it makes her sick. She doesn't want percocet either. Pt will be signed out to the day ER attending. <Debora Chavis - Last Filed: 10/21/16 01:26> *DC/Admit/Observation/Transfer - Attestations Scribe Attestion: 10/20/16 07:00 Documentation prepared by Ashia Marin, acting as medical management specialist for Debora Chavis MD. <Ashia Marin - Last Filed: 10/20/16 07:02> <Debora Chavis - Last Filed: 10/21/16 01:26> Diagnosis at time of Disposition: Abdominal pain - Discharge Dispostion Condition at time of disposition: Fair - Prescriptions Prescriptions: Dicyclomine HCl [Bentyl] 10 mg PO QID #40 capsule Simethicone [Phazyme] 250 mg PO TID #30 capsule - Patient Instructions Printed Discharge Instructions: DI for Abdominal Pain-Adult Additional Instructions: María- You should pretty much be able to eat anything you want. Use the bentyl for spasm and the simethicone for gas. Return to us if any problems. True- Dr. Patricio Yanez
[2016-10-20] MEDS ORDERED: DICYCLOMINE HCL 10 MG/5 ML PO ONE (06:46)
[2016-10-20] MEDS ORDERED: SIMETHICONE 40 MG/0.6 ML BOTTLE PO ONE (06:47)
[2016-10-20] MEDS ORDERED: DICYCLOMINE HCL 10 MG CAPSULE ONE (06:50)
[2016-10-20] MEDS ORDERED: MAG HYDROX/AL HYDROX/SIMETH 30 ML UNIT-DOSE CUP ONE (06:50)
[2016-10-20 06:51] VITALS: TEMP 97.7; BMI 23.9
--- NOTE | 2016-10-20 07:11 | PDOC ---
History of Present Illness - General Chief Complaint: Pain Stated Complaint: POST OP SURGERY Time Seen by Provider: 10/20/16 06:34 Past History - Past Medical History Allergies/Adverse Reactions: Allergies Allergy/AdvReac Type Severity Reaction Status Date / Time amoxicillin Allergy Severe anaphylaxis Verified 10/20/16 06:46 azithromycin Allergy Severe anaphylaxis Verified 10/20/16 06:46 [From Zithromax Z-Triston] Home Medications: Ambulatory Orders B Cmplx 4/Vit D3/C/FA/Zinc Ox [Vital-D Rx Tablet] 1 tab PO DAILY 10/13/16 Omeprazole 20 mg PO DAILY 10/13/16 Vit B12/Pyridoxine/Thiamine [Apatate Liquid] 120 ml PO DAILY #0 10/13/16 Dicyclomine HCl [Bentyl] 10 mg PO QID #40 capsule 10/20/16 Simethicone [Phazyme] 250 mg PO TID #30 capsule 10/20/16 Anemia: Yes Asthma: Yes GI Disorders: Yes (gall stones) Disorders: Yes (kidney stone) Kidney Stones: Yes - Surgical History GI Surgery: Yes (Lap. Devorah) - Immunization History Immunization Up to Date: No - Psycho/Social/Smoking Cessation Hx Anxiety: No Suicidal Ideation: No Smoking History: Never smoked Have you smoked in the past 12 months: No Information on smoking cessation initiated: No Hx Alcohol Use: No Drug/Substance Use Hx: No Substance Use Type: None *Physical Exam - Vital Signs Last Vital Signs Temp Pulse Resp BP Pulse Ox 97.7 F 89 19 129/87 100 10/20/16 06:42 10/20/16 06:42 10/20/16 06:42 10/20/16 06:42 10/20/16 06:42 ED Treatment Course - LABORATORY CBC & Chemistry Diagram: 10/20/16 06:52 10/20/16 06:52 - Medications Given in the ED: ED Medications Discontinued Medications Generic Name Dose Route Start Last Admin Trade Name Freq PRN Reason Stop Dose Admin Dicyclomine HCl 10 mg 10/20/16 06:46 10/20/16 06:54 Bentyl Oral Solution - PO 10/20/16 06:47 1 cap ONCE ONE Administration Simethicone 40 mg 10/20/16 06:47 10/20/16 06:54 Mylicon Liquid - PO 10/20/16 06:48 40 mg NOW ONE Administration Medical Decision Making - Medical Decision Making 10/20/16 09:21 Patient feeling much better- 100%normal now. *DC/Admit/Observation/Transfer Diagnosis at time of Disposition: Abdominal pain Qualifiers: Abdominal location: generalized Qualified Code(s): R10.84 - Generalized abdominal pain - Discharge Dispostion Disposition: HOME Condition at time of disposition: Good Admit: No - Prescriptions Prescriptions: Dicyclomine HCl [Bentyl] 10 mg PO QID #40 capsule Simethicone [Phazyme] 250 mg PO TID #30 capsule - Patient Instructions Printed Discharge Instructions: DI for Abdominal Pain-Adult Additional Instructions: María- You should pretty much be able to eat anything you want. Use the bentyl for spasm and the simethicone for gas. Return to us if any problems. Best- Dr. Patricio Yanez - Attestations Physician Attestion: 10/20/16 07:11 I, Dr. Patricio Yanez, attest that this document has been prepared under my direction and personally reviewed by me in its entirety. I further attest, that it accurately reflects all work, treatment, procedures and medical decision -making performed by me.
[2016-10-20 07:17] LABS: MCH 26.6 pg (25.7-33.7); MCHC 33.3 g/dl (32.0-36.0); MEAN CELL VOLUME 80.1 fl (80-96); MEAN PLT VOLUME 8.5 fl (7.5-11.1); PLATELET COUNT 261 K/MM3 (134-434); RDW 15.5 % (11.6-15.6); WHITE BLOOD COUNT 11.1 K/mm3 (4.0-10.0)
[2016-10-20 07:32] LABS: ALBUMIN 3.9 g/dl (3.4-5.0); ALK PHOS 240 U/L (45-117); ANION GAP 8 (8-16); BILIRUBIN,TOTAL 1.2 mg/dL (0.2-1.0); CALCIUM 8.5 mg/dL (8.5-10.1); CO2 29 mmol/L (21-32); CREATININE 0.6 mg/dL (0.55-1.02); GLUCOSE,RANDOM 117 mg/dL (74-106); SGPT/ALT 374 U/L (12-78); TOT PROT 7.3 g/dl (6.4-8.2)
[2016-10-20 08:02] LABS: SGOT/AST 561 U/L (15-37)
[2016-10-20 09:43] VITALS: BP 130/79; PULSE 84
== END 2016-10-20 09:42 | disposition home or self-care (01) ==
LOC: JER 06:27
DX: G89.18 Other acute postprocedural pain (principal); R14.1 Gas pain
CPT/HCPCS: 36415; 80053; 85025; 99283-25

== ENCOUNTER 2021-07-28 19:56 | Emergency (ER) | payer OTHER ==
[2021-07-28 20:02] VITALS: BMI 22.8
[2021-07-28] MEDS ORDERED: DEXAMETHASONE 4 MG TABLET (FP) PO ONE (20:23)
[2021-07-28] MEDS ORDERED: SUCRALFATE 1 GM TABLET (FP) PO ONE (20:27)
[2021-07-28] MEDS ORDERED: MAG HYDROX/AL HYDROX/SIMETH 30 ML UNIT-DOSE CUP PO ONE (20:27)
[2021-07-28] MEDS ORDERED: FAMOTIDINE 10 MG TABLET PO ONE (20:27)
[2021-07-28] MEDS ORDERED: ALPRAZolam 0.25 MG TABLET PO ONE (20:36)
[2021-07-28] MEDS ORDERED: predniSONE 20 MG TABLET (UD) PO ONE (20:38)
[2021-07-28] MEDS ORDERED: ALBUTEROL SO4 2.5/IPRATROPIUM 0.5 INH SOL 3 ML VIAL.NEB. NEB ONE (20:41)
[2021-07-28] MEDS: ALBUTEROL SO4 2.5/IPRATROPIUM 0.5 INH SOL 3 ML VIAL.NEB. NEB SCH ×4 (20:41→21:39)
[2021-07-28] MEDS ORDERED: SUCRALFATE 1 GM TABLET (FP) ONE (21:36)
[2021-07-28] MEDS ORDERED: predniSONE 20 MG TABLET (UD) ONE (21:36)
[2021-07-28] MEDS ORDERED: FAMOTIDINE 20 MG TABLET ONE (21:36)
[2021-07-28] MEDS ORDERED: ALPRAZolam 0.25 MG TABLET ONE (21:37)
[2021-07-28] MEDS ORDERED: MAG HYDROX/AL HYDROX/SIMETH 30 ML UNIT-DOSE CUP ONE (21:37)
[2021-07-28 21:49] VITALS: BP 152/92; PULSE 122; TEMP 98.4
[2021-07-28] MEDS ORDERED: ACETAMINOPHEN 1000 MG/100 ML BAG IVPB ONE (22:39)
[2021-07-28] MEDS ORDERED: ACETAMINOPHEN INJECTION 100 ML IVPB ONE (22:40)
[2021-07-28 22:50] LABS: BASO % 0.6 % (0-2.0); EOS % 12.3 % (0-4.5); LYMPH % 17.3 % (8-40); MCH 26.2 pg (25.7-33.7); MCHC 33.5 g/dl (32.0-36.0); MEAN CELL VOLUME 78.2 fl (80-96); MEAN PLT VOLUME 7.4 fl (7.5-11.1); MONO % 4.2 % (3.8-10.2); NEUT % 65.6 % (42.8-82.8); PLATELET COUNT 300 10^3/uL (134-434); RBC 4.98 M/mm3 (3.60-5.2); RDW 15.2 % (11.6-15.6)
[2021-07-28 22:56] LABS: INR 1.02 (0.83-1.09); PROTHROMBIN TIME (PATIENT) 11.7 SEC (9.7-13.0)
[2021-07-28 22:59] LABS: ACTIVATED PTT 31.7 SECONDS (25.2-36.5)
[2021-07-28 23:11] LABS: BLOOD UREA NITROGEN 9.5 mg/dL (7-18); CALCIUM 9.3 mg/dL (8.5-10.1)
[2021-07-28 23:15] LABS: CREATININE 0.8 mg/dL (0.55-1.3)
== END 2021-07-29 02:22 | disposition home or self-care (01) ==
LOC: JER 19:56
PROC: 3E033GC Introduction of Other Therapeutic Substance into Peripheral Vein, Percutaneous Approach (ICD-10-PCS; principal; 2021-07-28)
PROC: 3E0F7GC Introduction of Other Therapeutic Substance into Respiratory Tract, Via Natural or Artificial Opening (ICD-10-PCS; 2021-07-28)
DX: J45.21 Mild intermittent asthma with (acute) exacerbation (principal)
CPT/HCPCS: 36415; 71275-TC; 80048; 84703; 85025; 85610; 85730; 93005; 93010; 94640; 96374; 99285-25